=== PATIENT | female | born 1945 | race Caucasian/White ===

== ENCOUNTER 2018-05-24 07:25 | Emergency (ER) | payer MEDICARE, MEDICAID ==
[~2018-05-24] VITALS: Ht 172.7 cm; Wt 90.9 kg
[2018-05-24] MEDS ORDERED: acetaminophen 325mg tablet PO STA (08:04)
[2018-05-24] MEDS ORDERED: gentamicin 0.1% topical ointment 15gm TP SCH (08:05)
[2018-05-24] MEDS ORDERED: normal saline 1000ML IV soln IV ONE (08:05)
[2018-05-24] MEDS ORDERED: nystatin 15 GM powder TP SCH (08:05)
[2018-05-24] MEDS ORDERED: nystatin 15 GM powder TP ONE (08:05)
[2018-05-24] MEDS ORDERED: gentamicin 0.1% topical ointment 15gm TP ONE (08:05)
[2018-05-24] MEDS ORDERED: ibuprofen 200mg tablet PO ONE (08:05)
--- NOTE | 2018-05-24 08:25 | NUR ---
Patient was given Tylenol and was able to swallow x2 pills without difficulty. Patient then given ibuprofen at which she stated that she could take the x3 200 mg tablets, patient was given tablets and water. Patient began to cough and spit out water. Stated, "Just went down the wrong tube." Patient up at 90 degrees/ high fowlers. No respirator distress after administration. Patient oxygen staturation at 95%, no change since arrival in ED.
[2018-05-24 08:59] LABS: BASOPHILS # (AUTO) 0.1 X10'3 (0-0.2); BASOPHILS % (AUTO) 0.4 % (0-1); EOSINOPHILS % (AUTO) 0.1 % (0-6); HEMOGLOBIN 12.9 g/dl (12.0-16.0); LYMPHOCYTES # (AUTO) 0.8 X10'3 (1.1-4.8); LYMPHOCYTES % (AUTO) 3.8 % (21-51); MEAN CORPUSCULAR HEMOGLOBIN 29.9 PG (27.0-31.0); MEAN CORPUSCULAR HGB CONC 33.1 g/dL (33.0-36.5); MEAN CORPUSCULAR VOLUME 90.4 FL (78-98); MEAN PLATELET VOLUME 8.1 FL (7.4-10.4); MONOCYTES # (AUTO) 1.7 X10'3 (0-0.9); MONOCYTES % (AUTO) 8.1 % (2-12); NEUTROPHILS # (AUTO) 18.2 X10'3 (1.8-7.7); NEUTROPHILS % (AUTO) 87.6 % (42-75); PLATELET COUNT 233 X10'3 (140-440); RED BLOOD COUNT 4.32 X10'6 (4.20-5.60); RED CELL DISTRIBUTION WIDTH 13.3 % (11.5-14.5); WHITE BLOOD COUNT 20.7 X10'3 (4.5-11.0)
[2018-05-24 09:09] LABS: ALANINE AMINOTRANSFERASE 28 U/L (12-78); ALBUMIN 3.4 G/DL (3.4-5.0); ALBUMIN/GLOBULIN RATIO 0.8 (1.1-1.5); ALKALINE PHOSPHATASE 105 IU/L (46-116); ASPARTATE AMINO TRANSFERASE 24 U/L (10-37); BILIRUBIN,TOTAL 0.6 MG/DL (0.1-1.0); BLOOD UREA NITROGEN 20 MG/DL (7-18); BUN/CREATININE RATIO 20.8 (6.6-38.0); CHLORIDE 100 MMOL/L (99-107); CREATININE 0.96 MG/DL (0.40-0.90); GLUCOSE 107 MG/DL (70-104); TOTAL CARBON DIOXIDE 25.7 MMOL/L (24-32); TOTAL PROTEIN 7.6 G/DL (6.4-8.2); eGFR 57 ML/MIN
[2018-05-24 09:10] LABS: PROTHROMBIN TIME 9.7 SECONDS (9.0-12.0)
[2018-05-24 09:15] LABS: ANION GAP 8 (8-16); SODIUM 134 MMOL/L (135-145)
[2018-05-24 09:58] LABS: PLATELET ESTIMATE NORMAL; TOTAL CELLS COUNTED 100
[2018-05-24 10:10] LABS: CLARITY,URINE SLIGHTLY CLOUDY (Clear); COLOR,URINE YELLOW (Yellow); GLUCOSE, URINE NEGATIVE (Neg); KETONES,URINE NEGATIVE (Neg); LEUKOCYTE ESTERASE ,URINE NEGATIVE (Neg); NITRITES, URINE NEGATIVE (Neg); OCCULT BLOOD,URINE NEGATIVE (Neg); PH,URINE 5.5 (4.8-8.0); PROTEIN,URINE 30 mg/dl (Neg); UA COLLECTION TYPE STRAIGHT CATH; UROBILINOGEN,URINE 0.2 E.U/dL (0.2-1.0)
[2018-05-24 10:26] LABS: BACTERIA,URINE NONE SEEN /HPF (Neg); MUCUS STRANDS FEW /LPF (Neg); RBC,URINE NONE SEEN /HPF (0-2); SQUAMOUS EPITHELIAL CELL,UR FEW /LPF (FEW); TRANSITIONAL EPI CELLS,URINE FEW /HPF; WBC,URINE NONE SEEN /HPF (0-4)
[2018-05-24 10:27] LABS: AMORPHOUS URATES 1+; HYALINE CASTS 0-3 /LPF (NEGATIVE)
[2018-05-24] MEDS ORDERED: CEPH500C5 PO (10:44)
[2018-05-24] MEDS ORDERED: NYST1POW23 TOP (10:44)
[2018-05-24] MEDS ORDERED: CefTRIAXone/D5W-Rocephin 1gm 50 ML IV ONE (10:50)
[2018-05-24 11:34] VITALS: BP 135/88
== END 2018-05-24 11:36 | disposition home or self-care (01) ==
LOC: ER 07:27
DX: L03.311 Cellulitis of abdominal wall (principal); D72.829 Elevated white blood cell count, unspecified; B35.4 Tinea corporis; J44.9 Chronic obstructive pulmonary disease, unspecified; G89.29 Other chronic pain; M54.9 Dorsalgia, unspecified; F17.200 Nicotine dependence, unspecified, uncomplicated; Z88.1 Allergy status to other antibiotic agents; Z88.8 Allergy status to other drugs, medicaments and biological substances
CPT/HCPCS: 36415; 71046; 80053; 81001; 83605; 84145; 85025; 85610; 87040; 93005; 96365; 99284; J0696; J7030; P9612

== ENCOUNTER 2018-07-10 14:05 | Inpatient (IN) | payer MEDICARE, MEDICAID ==
[~2018-07-10] VITALS: Ht 172.7 cm; Wt 80.0 kg
[~2018-07-10 14:05] MED LIST: CEPH500C5 PO; NYST1POW23 TOP
--- NOTE | 2018-07-10 15:11 | NUR ---
Patient ambulated to room from lobby with steady gait and appropriate use of walker.
[2018-07-10] MEDS ORDERED: normal saline 1000ML IV soln IV ONE (15:25)
[2018-07-10] MEDS ORDERED: piperacillin/tazo 4.5gm/100ml 100 ML IV SCH (15:30)
[2018-07-10] MEDS ORDERED: piperacillin/tazo 4.5gm/100ml 100 ML IV ONE (15:33)
[2018-07-10] MEDS ORDERED: vancomycin/NS 1 GM ADD-VANTAGE 250 ML X 1 DOSE IV ONE (15:35)
[2018-07-10] MEDS ORDERED: morphine 4 MG/ML inj SYRINge IV ONE (15:45)
[2018-07-10] MEDS ORDERED: ondansetron/PF 4mg/2ml inj IV ONE (15:45)
--- NOTE | 2018-07-10 16:16 | NUR ---
AFTER MULTIPLE IV ATTEMPTS BY 2 RNS. 18 G IV ESTABLISHED TO LEFT NECK. PATIENT TOLERATED WELL.
[2018-07-10 16:24] LABS: BASOPHILS % (AUTO) 0.2 % (0-1); EOSINOPHILS # (AUTO) 0.2 X10'3 (0-0.9); EOSINOPHILS % (AUTO) 1.1 % (0-6); HEMATOCRIT 35.7 % (35.0-45.0); HEMOGLOBIN 11.7 g/dl (12.0-16.0); LYMPHOCYTES # (AUTO) 1.6 X10'3 (1.1-4.8); LYMPHOCYTES % (AUTO) 8.5 % (21-51); MEAN CORPUSCULAR HEMOGLOBIN 29.3 PG (27.0-31.0); MEAN CORPUSCULAR HGB CONC 32.8 g/dL (33.0-36.5); MEAN CORPUSCULAR VOLUME 89.3 FL (78-98); MEAN PLATELET VOLUME 8.2 FL (7.4-10.4); MONOCYTES # (AUTO) 2.4 X10'3 (0-0.9); MONOCYTES % (AUTO) 12.5 % (2-12); NEUTROPHILS # (AUTO) 14.7 X10'3 (1.8-7.7); NEUTROPHILS % (AUTO) 77.7 % (42-75); PLATELET COUNT 295 X10'3 (140-440); RED CELL DISTRIBUTION WIDTH 14.1 % (11.5-14.5)
[2018-07-10 16:33] LABS: INR 0.9 INR; PARTIAL THROMBOPLASTIN TIME 28 SECONDS (22-32)
[2018-07-10 16:43] LABS: ALANINE AMINOTRANSFERASE 17 U/L (12-78); ALBUMIN 2.4 G/DL (3.4-5.0); ALBUMIN/GLOBULIN RATIO 0.5 (1.1-1.5); ALKALINE PHOSPHATASE 198 IU/L (46-116); ANION GAP 10 (8-16); ASPARTATE AMINO TRANSFERASE 14 U/L (10-37); BILIRUBIN,TOTAL 0.4 MG/DL (0.1-1.0); BLOOD UREA NITROGEN 27 MG/DL (7-18); BUN/CREATININE RATIO 22.1 (6.6-38.0); CALCIUM 9.3 MG/DL (8.5-10.1); CHLORIDE 103 MMOL/L (99-107); CREATININE 1.22 MG/DL (0.40-0.90); GLUCOSE 98 MG/DL (70-104); MAGNESIUM 1.8 MG/DL (1.5-2.4); POTASSIUM 3.9 MMOL/L (3.5-5.1); SODIUM 138 MMOL/L (135-145); TOTAL CARBON DIOXIDE 24.7 MMOL/L (24-32); TOTAL PROTEIN 7.6 G/DL (6.4-8.2); eGFR 43 ML/MIN
--- NOTE | 2018-07-10 17:03 | NUR ---
Patient's left neck IV infiltrated. Antibiotic and NS stopped. Patient denies any pain. swelling noted. RN Mikey attempting another IV with use of ultra sound. Patient ambulated to bedside comode, urine sample collected and sent to lab.
--- NOTE | 2018-07-10 17:15 | NUR ---
warm compresses placed to left neck as pharmacy recommended for infiltration.
[2018-07-10 17:22] LABS: PLATELET ESTIMATE NORMAL; TOTAL CELLS COUNTED 100
--- NOTE | 2018-07-10 17:30 | NUR ---
HERMILO ALVA ESTABLISHED 20G IV TO RIGHT F/A. PATIENT TOLERATED WELL.
[2018-07-10 17:36] LABS: CLARITY,URINE CLOUDY (Clear); COLOR,URINE YELLOW (Yellow); GLUCOSE, URINE NEGATIVE (Neg); KETONES,URINE TRACE mg/dl (Neg); LEUKOCYTE ESTERASE ,URINE NEGATIVE (Neg); NITRITES, URINE NEGATIVE (Neg); OCCULT BLOOD,URINE NEGATIVE (Neg); PROTEIN,URINE 100 mg/dl (Neg)
[2018-07-10 17:37] LABS: UA COLLECTION TYPE CLN CATCH MIDSTREAM
[2018-07-10] MEDS ORDERED: ACET-2119 PO (17:40)
[2018-07-10] MEDS ORDERED: IBUP-1984 PO (17:40)
[2018-07-10] MEDS ORDERED: magnesium Cl slow-release 64mg tablet PO PRN (17:55)
[2018-07-10] MEDS ORDERED: ondansetron/PF 4mg/2ml inj IV PRN (17:55)
[2018-07-10] MEDS ORDERED: magnesium hydroxide 30ml (MOM) UD suspension PO PRN (17:55)
[2018-07-10] MEDS ORDERED: mag hydrox/Alum hydrox/simeth 30ml oral suspension PO PRN (17:55)
[2018-07-10] MEDS ORDERED: potassium Cl 40MEQ/NS 500ml 500 ML IV PRN ×2 (17:55)
[2018-07-10] MEDS ORDERED: magnesium 2GM in 50ml NS 50 ML IV PRN (17:55)
[2018-07-10] MEDS ORDERED: potassium Cl 20 mEq SR tablet PO PRN ×2 (17:55)
[2018-07-10] MEDS ORDERED: magnesium 4gm in 100ml NS 100 ML IV PRN (17:55)
[2018-07-10] MEDS ORDERED: acetaminophen 325mg tablet PO PRN (17:55)
[2018-07-10 18:04] LABS: BACTERIA,URINE 1+ /HPF (Neg); COARSE GRANULAR CAST 0-3 /LPF (NEGATIVE); MUCUS STRANDS NONE SEEN /LPF (Neg); SQUAMOUS EPITHELIAL CELL,UR MANY /LPF (FEW)
[2018-07-10 18:05] LABS: AMORPHOUS URATES 1+; RBC,URINE 0-2 /HPF (0-2); WBC,URINE 0-4 /HPF (0-4)
[2018-07-10] MEDS: normal saline 1000ml 1,000 ML IV SCH (19:31)
[2018-07-10] MEDS: heparin, porcine 5000 units/ml vial SQ SCH (20:49)
--- NOTE | 2018-07-10 20:50 | NUR ---
PT DID RECEIVE HER DIETARY TRAY AND SHE DID EAT SOME OF IT.
[2018-07-10] MEDS: acetaminophen 325mg tablet PO PRN (21:51)
[2018-07-10] MEDS ORDERED: nicotine 14mg patch - 24hr TD ONE (22:10)
[2018-07-10] MEDS: HYDROcodone/acetaminophen 5mg/325mg tablet PO PRN (23:38)
[2018-07-10] MEDS: temazepam 15mg capsule PO PRN (23:39)
[2018-07-11] MEDS: piperacillin/tazo 3.375gm/50ml 50 ML IV SCH ×3 (00:44→18:27)
--- NOTE | 2018-07-11 00:51 | NUR ---
Pt asleep. She had told me earlier not to awaken her if she did. So the zosyn was not scanned r/t her request and her left arm was under the covers. I quietly hung the zosyn and started it, without her waking up.
--- NOTE | 2018-07-11 02:08 | NUR ---
Pt up to Bedside commode, also gave her snacks and juice.
--- NOTE | 2018-07-11 02:20 | NUR ---
she is laying down and going to sleep again.
[2018-07-11] MEDS: normal saline 1000ml 1,000 ML IV SCH ×2 (04:43→09:53)
--- NOTE | 2018-07-11 06:01 | NUR ---
Pt requested coffee, gave her some. She wants a pain pill, but pyxis doing an update. Pt infomed.
[2018-07-11] MEDS: HYDROcodone/acetaminophen 5mg/325mg tablet PO PRN ×3 (06:56→16:47)
[2018-07-11] MEDS: K and/or MAG REPLACEMENT MC SCH (08:00)
[2018-07-11 08:22] VITALS: BP 181/88
[2018-07-11 08:54] LABS: BASOPHILS # (AUTO) 0.1 X10'3 (0-0.2); BASOPHILS % (AUTO) 0.5 % (0-1); EOSINOPHILS # (AUTO) 0.2 X10'3 (0-0.9); EOSINOPHILS % (AUTO) 1.1 % (0-6); HEMOGLOBIN 10.4 g/dl (12.0-16.0); LYMPHOCYTES # (AUTO) 1.2 X10'3 (1.1-4.8); LYMPHOCYTES % (AUTO) 6.9 % (21-51); MEAN CORPUSCULAR HGB CONC 32.5 g/dL (33.0-36.5); MEAN CORPUSCULAR VOLUME 89.5 FL (78-98); MEAN PLATELET VOLUME 7.7 FL (7.4-10.4); MONOCYTES # (AUTO) 1.8 X10'3 (0-0.9); NEUTROPHILS # (AUTO) 14.5 X10'3 (1.8-7.7); NEUTROPHILS % (AUTO) 81.5 % (42-75); PLATELET COUNT 270 X10'3 (140-440); RED BLOOD COUNT 3.57 X10'6 (4.20-5.60); RED CELL DISTRIBUTION WIDTH 14.1 % (11.5-14.5); WHITE BLOOD COUNT 17.7 X10'3 (4.5-11.0)
--- NOTE | 2018-07-11 09:00 | NUR ---
Patient in room [facility]. I have received report from RAVEN rn and had the opportunity to ask questions and assume patient care.
[2018-07-11 09:07] LABS: ALANINE AMINOTRANSFERASE 16 U/L (12-78); ALBUMIN 1.9 G/DL (3.4-5.0); ALBUMIN/GLOBULIN RATIO 0.4 (1.1-1.5); ALKALINE PHOSPHATASE 245 IU/L (46-116); ANION GAP 6 (8-16); ASPARTATE AMINO TRANSFERASE 14 U/L (10-37); BILIRUBIN,TOTAL 0.5 MG/DL (0.1-1.0); BLOOD UREA NITROGEN 18 MG/DL (7-18); BUN/CREATININE RATIO 18.8 (6.6-38.0); CALCIUM 8.2 MG/DL (8.5-10.1); CHLORIDE 107 MMOL/L (99-107); CREATININE 0.96 MG/DL (0.40-0.90); GLUCOSE 128 MG/DL (70-104); MAGNESIUM 1.5 MG/DL (1.5-2.4); PHOSPHORUS 2.3 MG/DL (2.3-4.5); SODIUM 136 MMOL/L (135-145); TOTAL CARBON DIOXIDE 22.8 MMOL/L (24-32); TOTAL PROTEIN 6.4 G/DL (6.4-8.2); eGFR 57 ML/MIN
[2018-07-11] MEDS: heparin, porcine 5000 units/ml vial SQ SCH ×2 (09:44→19:45)
--- NOTE | 2018-07-11 10:00 | NUR ---
PATIENT SETTLING INTO ROOM nORCO 5MG GIVEN WITH EFFECT FOR PAIN IN LEFT LEG. SLEEPING AND RESTING MOST OF SHIFT. UP TO BEDSIDE COMMODE WITH ASSIST X1. REPORT GIVEN TO GABINO AKHTAR
[2018-07-11 10:39] LABS: TOTAL CELLS COUNTED 100
[2018-07-11 10:40] LABS: PLATELET ESTIMATE NORMAL
[2018-07-11 11:00] VITALS: BP 124/70
[2018-07-11] MEDS: vancomycin/NS 1 GM ADD-VANTAGE 250 ML IV SCH (16:41)
--- NOTE | 2018-07-11 18:44 | NUR ---
Patient in room [facility]. I have received report from HERMILO Polo and had the opportunity to ask questions and assume patient care.
[2018-07-11] MEDS: lactobacillus rhamnosus 10,000 MMU CELLS/CAPSULE PO SCH (19:44)
[2018-07-11 20:00] VITALS: BP 140/72
[2018-07-11] MEDS: temazepam 15mg capsule PO PRN (20:56)
[2018-07-12] VITALS: BP 131/60
[2018-07-12] MEDS: piperacillin/tazo 3.375gm/50ml 50 ML IV SCH ×4 (00:09→23:53)
[2018-07-12] MEDS: HYDROcodone/acetaminophen 5mg/325mg tablet PO PRN ×6 (00:09→23:53)
[2018-07-12] MEDS: vancomycin/NS 1 GM ADD-VANTAGE 250 ML IV SCH ×2 (04:26→15:58)
[2018-07-12 04:53] LABS: BASOPHILS # (AUTO) 0.2 X10'3 (0-0.2); BASOPHILS % (AUTO) 0.9 % (0-1); EOSINOPHILS # (AUTO) 0.3 X10'3 (0-0.9); EOSINOPHILS % (AUTO) 1.7 % (0-6); HEMATOCRIT 29.1 % (35.0-45.0); HEMOGLOBIN 9.7 g/dl (12.0-16.0); LYMPHOCYTES # (AUTO) 1.8 X10'3 (1.1-4.8); LYMPHOCYTES % (AUTO) 10.7 % (21-51); MEAN CORPUSCULAR HEMOGLOBIN 29.3 PG (27.0-31.0); MEAN CORPUSCULAR HGB CONC 33.4 g/dL (33.0-36.5); MEAN PLATELET VOLUME 7.7 FL (7.4-10.4); MONOCYTES # (AUTO) 1.5 X10'3 (0-0.9); NEUTROPHILS # (AUTO) 12.9 X10'3 (1.8-7.7); NEUTROPHILS % (AUTO) 77.7 % (42-75); PLATELET COUNT 276 X10'3 (140-440); RED BLOOD COUNT 3.31 X10'6 (4.20-5.60); RED CELL DISTRIBUTION WIDTH 14.1 % (11.5-14.5); WHITE BLOOD COUNT 16.6 X10'3 (4.5-11.0)
[2018-07-12 05:15] LABS: ALBUMIN 1.7 G/DL (3.4-5.0); ANION GAP 8 (8-16); BLOOD UREA NITROGEN 13 MG/DL (7-18); CALCIUM 8.6 MG/DL (8.5-10.1); CHLORIDE 106 MMOL/L (99-107); CREATININE 0.93 MG/DL (0.40-0.90); GLUCOSE 125 MG/DL (70-104); MAGNESIUM 1.5 MG/DL (1.5-2.4); PHOSPHORUS 2.4 MG/DL (2.3-4.5); POTASSIUM 3.7 MMOL/L (3.5-5.1); SODIUM 138 MMOL/L (135-145); TOTAL CARBON DIOXIDE 23.9 MMOL/L (24-32); eGFR 59 ML/MIN
--- NOTE | 2018-07-12 06:11 | NUR ---
Problems reprioritized. Patient report given, questions answered & plan of care reviewed with HERMILO Polo.
--- NOTE | 2018-07-12 06:42 | NUR ---
Patient in room [facility]. I have received report from pepper main and had the opportunity to ask questions and assume patient care.
[2018-07-12 08:00] VITALS: BP 141/90
[2018-07-12] MEDS: K and/or MAG REPLACEMENT MC SCH (08:00)
[2018-07-12] MEDS: lactobacillus rhamnosus 10,000 MMU CELLS/CAPSULE PO SCH ×2 (08:22→19:47)
[2018-07-12] MEDS: heparin, porcine 5000 units/ml vial SQ SCH ×2 (08:23→19:48)
--- NOTE | 2018-07-12 16:36 | NUR ---
patient seen by Dr Quezada. Order given to remove NG tube, stop ppn and ABX . Patient is to be encouraged to ambulate and have clear liquid diet. If can tolerate this then will be advanced diet as tolerated. Dietery consult called. patient is resting in bed has been up ambulating x1 will continue to monitor. Addendum: 07/12/18 at 1639 by Melani Wilcox RN wrong patient above note
--- NOTE | 2018-07-12 18:47 | NUR ---
patient very upset at times with having to be "constantly poked" Time spent with patient. patient refused to have second set of blood cultures taken. states she will wait till Karthikeyan comes on at 2000hrs. Wick placed for incontinence. patient up using BSCX2. reluctant however to work with PT or get out of bed as states leg is very painful. [place] administered for pain. Report given to Kamila Menendez RN
--- NOTE | 2018-07-12 18:53 | NUR ---
Patient in room [facility]. I have received report from HERMILO Polo and had the opportunity to ask questions and assume patient care. Addendum: 07/12/18 at 1853 by Hodan Moe RN Amended: Links added.
[2018-07-12 20:00] VITALS: BP 151/91
[2018-07-12] MEDS: temazepam 15mg capsule PO PRN (21:51)
[2018-07-12] MEDS: acetaminophen 325mg tablet PO PRN (21:52)
[2018-07-13 00:56] VITALS: BP 129/80
[2018-07-13] MEDS ORDERED: VANCOMYCIN LEVEL IV ONE (03:30)
[2018-07-13] MEDS: vancomycin/NS 1 GM ADD-VANTAGE 250 ML IV SCH (04:25)
[2018-07-13] MEDS: HYDROcodone/acetaminophen 5mg/325mg tablet PO PRN ×3 (04:27→12:37)
[2018-07-13 05:33] LABS: BASOPHILS # (AUTO) 0.1 X10'3 (0-0.2); BASOPHILS % (AUTO) 0.4 % (0-1); EOSINOPHILS # (AUTO) 0.4 X10'3 (0-0.9); EOSINOPHILS % (AUTO) 2.8 % (0-6); HEMATOCRIT 30.4 % (35.0-45.0); LYMPHOCYTES % (AUTO) 13.7 % (21-51); MEAN CORPUSCULAR HEMOGLOBIN 29.4 PG (27.0-31.0); MEAN CORPUSCULAR VOLUME 89.1 FL (78-98); MEAN PLATELET VOLUME 7.4 FL (7.4-10.4); MONOCYTES # (AUTO) 1.1 X10'3 (0-0.9); MONOCYTES % (AUTO) 7.8 % (2-12); NEUTROPHILS # (AUTO) 10.9 X10'3 (1.8-7.7); NEUTROPHILS % (AUTO) 75.3 % (42-75); PLATELET COUNT 313 X10'3 (140-440); RED BLOOD COUNT 3.41 X10'6 (4.20-5.60); RED CELL DISTRIBUTION WIDTH 13.9 % (11.5-14.5); WHITE BLOOD COUNT 14.5 X10'3 (4.5-11.0)
[2018-07-13 05:43] LABS: ALBUMIN 1.6 G/DL (3.4-5.0); ANION GAP 9 (8-16); BLOOD UREA NITROGEN 13 MG/DL (7-18); CALCIUM 8.7 MG/DL (8.5-10.1); CHLORIDE 107 MMOL/L (99-107); GLUCOSE 93 MG/DL (70-104); MAGNESIUM 1.6 MG/DL (1.5-2.4); PHOSPHORUS 3.1 MG/DL (2.3-4.5); POTASSIUM 3.9 MMOL/L (3.5-5.1); SODIUM 143 MMOL/L (135-145); TOTAL CARBON DIOXIDE 27.3 MMOL/L (24-32); VANCOMYCIN,TROUGH 13.8 UG/ML (6.0-14.0); eGFR 54 ML/MIN
--- NOTE | 2018-07-13 05:48 | NUR ---
patient a/o, has lt. leg cellulitis, taking norco for her pain, no noted open areas and needs attended Addendum: 07/13/18 at 0549 by Hodan Moe RN Amended: Links added.
--- NOTE | 2018-07-13 06:36 | NUR ---
Problems reprioritized. Patient report given, questions answered & plan of care reviewed with HERMILO Nicholas. Addendum: 07/13/18 at 0637 by Hodan Moe RN Amended: Links added.
[2018-07-13] MEDS: K and/or MAG REPLACEMENT MC SCH (06:39)
[2018-07-13 07:00] VITALS: BP 131/71
[2018-07-13] MEDS: lactobacillus rhamnosus 10,000 MMU CELLS/CAPSULE PO SCH ×2 (08:51→20:59)
[2018-07-13] MEDS: heparin, porcine 5000 units/ml vial SQ SCH ×2 (08:52→20:59)
[2018-07-13] MEDS: piperacillin/tazo 3.375gm/50ml 50 ML IV SCH ×2 (08:52→17:44)
[2018-07-13 11:00] VITALS: BP 129/76
[2018-07-13] MEDS ORDERED: vancomycin inj 1,250 MG in NS 250ml IV soln IV SCH (16:00)
--- NOTE | 2018-07-13 16:19 | NUR ---
Extended PIV inserted to right upper arm basilic vein x 1 attempt after 1 failed attempt to the right upper arm cephalic vein both using ultrasound. Filemon well. Addendum: 07/13/18 at 1620 by Tamara Saldaña RN Amended: Links added.
[2018-07-13] MEDS: HYDROcodone/acetaminophen 10/325mg tab PO PRN ×2 (17:00→21:01)
--- NOTE | 2018-07-13 18:21 | NUR ---
Problems reprioritized. Patient report given, questions answered & plan of care reviewed with maria del carmen parsons rn.
--- NOTE | 2018-07-13 18:33 | NUR ---
Patient in room [facility]. I have received report from HERMILO Nicholas and had the opportunity to ask questions and assume patient care. Addendum: 07/13/18 at 1833 by Hodan Moe RN Amended: Links added.
[2018-07-13 19:00] VITALS: BP 122/57
[2018-07-13] MEDS: temazepam 15mg capsule PO PRN (20:59)
[2018-07-13] MEDS: diphenhydrAMINE 25mg capsule PO PRN (23:50)
[2018-07-13] MEDS: acetaminophen 325mg tablet PO PRN (23:50)
[2018-07-14] VITALS: BP 112/52
[2018-07-14] MEDS: HYDROcodone/acetaminophen 10/325mg tab PO PRN ×5 (02:52→20:50)
[2018-07-14 04:45] LABS: BASOPHILS # (AUTO) 0.1 X10'3 (0-0.2); BASOPHILS % (AUTO) 0.5 % (0-1); EOSINOPHILS # (AUTO) 0.4 X10'3 (0-0.9); EOSINOPHILS % (AUTO) 2.9 % (0-6); HEMATOCRIT 27.7 % (35.0-45.0); HEMOGLOBIN 9.2 g/dl (12.0-16.0); LYMPHOCYTES # (AUTO) 2.2 X10'3 (1.1-4.8); LYMPHOCYTES % (AUTO) 14.2 % (21-51); MEAN CORPUSCULAR HEMOGLOBIN 29.3 PG (27.0-31.0); MEAN CORPUSCULAR HGB CONC 33.3 g/dL (33.0-36.5); MEAN CORPUSCULAR VOLUME 88.1 FL (78-98); MEAN PLATELET VOLUME 7.2 FL (7.4-10.4); MONOCYTES # (AUTO) 1.4 X10'3 (0-0.9); MONOCYTES % (AUTO) 9.4 % (2-12); NEUTROPHILS # (AUTO) 11.1 X10'3 (1.8-7.7); PLATELET COUNT 337 X10'3 (140-440); RED BLOOD COUNT 3.14 X10'6 (4.20-5.60); RED CELL DISTRIBUTION WIDTH 13.9 % (11.5-14.5); WHITE BLOOD COUNT 15.2 X10'3 (4.5-11.0)
[2018-07-14 05:11] LABS: ALBUMIN 1.6 G/DL (3.4-5.0); ANION GAP 3 (8-16); BLOOD UREA NITROGEN 15 MG/DL (7-18); BUN/CREATININE RATIO 15.8 (6.6-38.0); CALCIUM 8.2 MG/DL (8.5-10.1); CHLORIDE 106 MMOL/L (99-107); CREATININE 0.95 MG/DL (0.40-0.90); GLUCOSE 76 MG/DL (70-104); MAGNESIUM 1.6 MG/DL (1.5-2.4); PHOSPHORUS 3.4 MG/DL (2.3-4.5); POTASSIUM 3.9 MMOL/L (3.5-5.1); SODIUM 139 MMOL/L (135-145); TOTAL CARBON DIOXIDE 29.7 MMOL/L (24-32); eGFR 58 ML/MIN
[2018-07-14 05:27] LABS: PLATELET ESTIMATE NORMAL; TOTAL CELLS COUNTED 100; TOXIC GRANULATION 1+
--- NOTE | 2018-07-14 06:30 | NUR ---
Problems reprioritized. Patient report given, questions answered & plan of care reviewed with HERMILO Nicholas. Addendum: 07/14/18 at 0631 by Hodan Moe RN Amended: Links added.
[2018-07-14] MEDS: K and/or MAG REPLACEMENT MC SCH (06:46)
[2018-07-14 07:00] VITALS: BP 120/72
[2018-07-14] MEDS: lactobacillus rhamnosus 10,000 MMU CELLS/CAPSULE PO SCH ×2 (07:27→19:58)
[2018-07-14] MEDS: heparin, porcine 5000 units/ml vial SQ SCH ×2 (07:28→19:59)
[2018-07-14] MEDS ORDERED: cefpodoxime proxetil 100mg tablet PO SCH (08:30)
[2018-07-14] MEDS: CefTRIAXone 2gm/D5W 50ml 50 ML IV SCH (09:06)
[2018-07-14 12:00] VITALS: BP 131/65
--- NOTE | 2018-07-14 12:28 | NUR ---
Initial: Pt admit with LLE cellulitis with possible sepsis. Pt currently on a regular diet with documented PO intake 100% meeting nutrient needs. [facility] 07/10. Per physical assessment pt is agitated and resistive to care. Will continue to follow and make recommendations as appropriate. Recommendations: 1) Continue with regular diet 2) Monitor need for ONS or additional protein 3) Monitor need for additional bowel care 4) Wt per rx Addendum: 07/14/18 at [address] Amended: Links added.
--- NOTE | 2018-07-14 18:16 | NUR ---
Problems reprioritized. Patient report given, questions answered & plan of care reviewed with maria del carmen parsons rn.
--- NOTE | 2018-07-14 18:19 | NUR ---
Patient in room [facility]. I have received report from HERMILO Nicholas and had the opportunity to ask questions and assume patient care. Addendum: 07/14/18 at 1819 by Hodan Moe RN Amended: Links added.
[2018-07-14 20:00] VITALS: BP 144/75
[2018-07-14] MEDS: temazepam 15mg capsule PO PRN (23:46)
[2018-07-15 00:48] VITALS: BP 111/53
[2018-07-15] MEDS: HYDROcodone/acetaminophen 10/325mg tab PO PRN ×5 (01:27→19:51)
[2018-07-15] MEDS ORDERED: VANCOMYCIN LEVEL IV ONE (03:30)
[2018-07-15 05:14] LABS: BASOPHILS # (AUTO) 0.1 X10'3 (0-0.2); EOSINOPHILS # (AUTO) 0.4 X10'3 (0-0.9); EOSINOPHILS % (AUTO) 2.4 % (0-6)
[2018-07-15 05:16] LABS: BASOPHILS % (AUTO) 0.8 % (0-1); HEMATOCRIT 29.2 % (35.0-45.0); HEMOGLOBIN 9.8 g/dl (12.0-16.0); LYMPHOCYTES # (AUTO) 2.3 X10'3 (1.1-4.8); LYMPHOCYTES % (AUTO) 14.3 % (21-51); MEAN CORPUSCULAR HEMOGLOBIN 29.9 PG (27.0-31.0); MEAN CORPUSCULAR HGB CONC 33.7 g/dL (33.0-36.5); MEAN CORPUSCULAR VOLUME 88.9 FL (78-98); MEAN PLATELET VOLUME 8.5 FL (7.4-10.4); MONOCYTES # (AUTO) 1.6 X10'3 (0-0.9); MONOCYTES % (AUTO) 9.6 % (2-12); NEUTROPHILS # (AUTO) 11.7 X10'3 (1.8-7.7); NEUTROPHILS % (AUTO) 72.9 % (42-75); PLATELET COUNT 241 X10'3 (140-440); RED BLOOD COUNT 3.29 X10'6 (4.20-5.60); RED CELL DISTRIBUTION WIDTH 14.8 % (11.5-14.5); WHITE BLOOD COUNT 16.1 X10'3 (4.5-11.0)
--- NOTE | 2018-07-15 05:44 | NUR ---
pt complaining that her pain medications always given late, explained to her that her pain meds are not scheduled and she needs to call or ask for it if she needs it. pt still upset because she fell asleep last night and did not get her pain med after 4 hours because she was asleep Addendum: 07/15/18 at 0546 by Hodan Moe RN Amended: Links added.
[2018-07-15 05:50] LABS: TOTAL CELLS COUNTED 100
[2018-07-15 05:51] LABS: PLATELET ESTIMATE NORMAL
--- NOTE | 2018-07-15 06:34 | NUR ---
Problems reprioritized. Patient report given, questions answered & plan of care reviewed with HERMILO Pereira. Addendum: 07/15/18 at 0634 by Hodan Moe RN Amended: Links added.
[2018-07-15 07:06] VITALS: BP 115/60
[2018-07-15 07:30] LABS: ALBUMIN 1.7 G/DL (3.4-5.0); ANION GAP 5 (8-16); BLOOD UREA NITROGEN 15 MG/DL (7-18); BUN/CREATININE RATIO 16.1 (6.6-38.0); CALCIUM 8.9 MG/DL (8.5-10.1); CHLORIDE 103 MMOL/L (99-107); CREATININE 0.93 MG/DL (0.40-0.90); GLUCOSE 100 MG/DL (70-104); MAGNESIUM 1.7 MG/DL (1.5-2.4); PHOSPHORUS 3.2 MG/DL (2.3-4.5); POTASSIUM 4.2 MMOL/L (3.5-5.1); SODIUM 137 MMOL/L (135-145); TOTAL CARBON DIOXIDE 28.7 MMOL/L (24-32); eGFR 59 ML/MIN
[2018-07-15] MEDS: K and/or MAG REPLACEMENT MC SCH (07:51)
[2018-07-15] MEDS: CefTRIAXone 2gm/D5W 50ml 50 ML IV SCH (07:53)
[2018-07-15] MEDS: lactobacillus rhamnosus 10,000 MMU CELLS/CAPSULE PO SCH ×2 (07:58→19:50)
[2018-07-15] MEDS: heparin, porcine 5000 units/ml vial SQ SCH ×2 (07:59→19:51)
[2018-07-15 11:00] VITALS: BP 123/69
[2018-07-15] MEDS: diphenhydrAMINE 25mg capsule PO PRN ×2 (14:56→23:11)
[2018-07-15 18:00] VITALS: BP 151/74
--- NOTE | 2018-07-15 18:00 | NUR ---
Problems reprioritized. Patient report given, questions answered & plan of care reviewed with ENRIQUE AKHTAR. PT SLEEPING COMFORTABLY, EVEN RISE AND FALL OF CHEST
--- NOTE | 2018-07-15 18:30 | NUR ---
Patient in room [facility]. I have received report from Moraima AKHTAR and had the opportunity to ask questions and assume patient care.
[2018-07-15] MEDS: temazepam 15mg capsule PO PRN (21:50)
[2018-07-15] MEDS: ibuprofen tablet 400 MG TABLET PO PRN (21:54)
[2018-07-16] VITALS: BP 122/63
[2018-07-16] MEDS: HYDROcodone/acetaminophen 10/325mg tab PO PRN ×5 (03:51→22:09)
[2018-07-16 04:56] LABS: ALBUMIN 1.6 G/DL (3.4-5.0); ANION GAP 5 (8-16); BLOOD UREA NITROGEN 19 MG/DL (7-18); BUN/CREATININE RATIO 19.8 (6.6-38.0); CHLORIDE 104 MMOL/L (99-107); CREATININE 0.96 MG/DL (0.40-0.90); GLUCOSE 116 MG/DL (70-104); MAGNESIUM 1.8 MG/DL (1.5-2.4); POTASSIUM 4.2 MMOL/L (3.5-5.1); SODIUM 138 MMOL/L (135-145); TOTAL CARBON DIOXIDE 29.4 MMOL/L (24-32); eGFR 57 ML/MIN
--- NOTE | 2018-07-16 06:44 | NUR ---
Problems reprioritized. Patient report given, questions answered & plan of care reviewed with Evangelina AKHTAR.
--- NOTE | 2018-07-16 06:54 | NUR ---
Patient in room [facility]. I have received report from HERMILO Galarza and had the opportunity to ask questions and assume patient care.
[2018-07-16 07:38] VITALS: BP 129/70
[2018-07-16] MEDS: K and/or MAG REPLACEMENT MC SCH (08:00)
[2018-07-16] MEDS: lactobacillus rhamnosus 10,000 MMU CELLS/CAPSULE PO SCH ×2 (08:08→20:27)
[2018-07-16] MEDS: CefTRIAXone 2gm/D5W 50ml 50 ML IV SCH (08:09)
[2018-07-16] MEDS: heparin, porcine 5000 units/ml vial SQ SCH ×2 (08:09→20:27)
--- NOTE | 2018-07-16 08:26 | NUR ---
No BM since SKIP MINER BLASTING. Pt states "I refuse to take a laxative. You guys take as long as you do to get down here, and I'm not shitting the bed". Will notify MD and continue to monitor.
[2018-07-16 12:00] VITALS: BP 132/85
[2018-07-16] MEDS: diphenhydrAMINE 25mg capsule PO PRN (15:12)
--- NOTE | 2018-07-16 15:14 | NUR ---
Pt agreeable to taking prune juice. 1 cup of prune juice provided and consumed by pt. Will continue to monitor.
--- NOTE | 2018-07-16 18:05 | NUR ---
Problems reprioritized. Patient report given, questions answered & plan of care reviewed with HERMILO Sidhu.
--- NOTE | 2018-07-16 19:09 | NUR ---
Patient in room [facility]. I have received report from HERMILO Hutchinson and had the opportunity to ask questions and assume patient care. Addendum: 07/16/18 at 1915 by Thea Garzon RN Amended: Links added.
[2018-07-16 19:27] VITALS: BP 121/63
[2018-07-16] MEDS: temazepam 15mg capsule PO PRN (22:08)
[2018-07-16 23:21] VITALS: BP 98/58
[2018-07-17] MEDS: HYDROcodone/acetaminophen 10/325mg tab PO PRN ×5 (06:00→23:35)
--- NOTE | 2018-07-17 06:22 | NUR ---
Problems reprioritized. Patient report given, questions answered & plan of care reviewed with HERMILO De La Cruz. Addendum: 07/17/18 at 0623 by Thea Garzon RN Amended: Links added.
[2018-07-17 08:00] VITALS: BP 133/78
[2018-07-17] MEDS: K and/or MAG REPLACEMENT MC SCH (08:00)
[2018-07-17] MEDS: lactobacillus rhamnosus 10,000 MMU CELLS/CAPSULE PO SCH ×2 (08:59→19:47)
[2018-07-17] MEDS: CefTRIAXone 2gm/D5W 50ml 50 ML IV SCH (08:59)
[2018-07-17] MEDS: ibuprofen tablet 400 MG TABLET PO PRN (08:59)
[2018-07-17] MEDS: heparin, porcine 5000 units/ml vial SQ SCH ×2 (09:00→19:47)
[2018-07-17 12:00] VITALS: BP 97/52
[2018-07-17 20:00] VITALS: BP 103/64
[2018-07-17] MEDS: temazepam 15mg capsule PO PRN (23:35)
[2018-07-18 00:24] VITALS: BP 131/56
[2018-07-18] MEDS: HYDROcodone/acetaminophen 5mg/325mg tablet PO PRN ×2 (04:17→08:21)
--- NOTE | 2018-07-18 06:19 | NUR ---
Problems reprioritized. Patient report given, questions answered & plan of care reviewed with HERMILO Herrera. Addendum: 07/18/18 at 0619 by Thea Garzon RN Amended: Links added.
--- NOTE | 2018-07-18 06:20 | NUR ---
Patient in room [facility]. I have received report from HERMILO Sidhu and had the opportunity to ask questions and assume patient care.
[2018-07-18 07:19] VITALS: BP 100/62
[2018-07-18] MEDS: K and/or MAG REPLACEMENT MC SCH (08:00)
[2018-07-18] MEDS: lactobacillus rhamnosus 10,000 MMU CELLS/CAPSULE PO SCH ×2 (08:21→19:40)
[2018-07-18] MEDS: heparin, porcine 5000 units/ml vial SQ SCH ×2 (08:21→19:40)
[2018-07-18] MEDS: CefTRIAXone 2gm/D5W 50ml 50 ML IV SCH (08:25)
--- NOTE | 2018-07-18 11:10 | NUR ---
Reassessment: Pt continues with abx tx for cellulitis. Per MD notes pt blood cultures positive for Staph Epi. Pt remains on regular diet with documented PO intake 75-100% still meeting nutrient needs. [facility] 07/17. Will continue to follow. Recommendations: 1) Continue with regular diet 2) Monitor need for ONS or additional protein 3) Monitor need for additional bowel care 4) Wt per rx Addendum: 07/18/18 at [address] Amended: Links added.
[2018-07-18 11:23] VITALS: BP 100/59
[2018-07-18] MEDS: HYDROcodone/acetaminophen 10/325mg tab PO PRN ×3 (12:22→20:51)
[2018-07-18] MEDS: diphenhydrAMINE 25mg capsule PO PRN (13:27)
--- NOTE | 2018-07-18 18:18 | NUR ---
Problems reprioritized. Patient report given, questions answered & plan of care reviewed with Kamila Arenas RN.
[2018-07-18 20:00] VITALS: BP 107/50
[2018-07-18] MEDS ORDERED: linezolid 600mg/300ml PREMIX 300 ML IV ONE (21:45)
[2018-07-18] MEDS: temazepam 15mg capsule PO PRN (22:10)
[2018-07-18] MEDS ORDERED: nystatin 15 GM powder TP ONE (22:25)
[2018-07-18] MEDS ORDERED: benzocaine/menthol oral lozeng 1 EACH BOX MM PRN (22:25)
[2018-07-18 23:43] VITALS: BP 117/52
[2018-07-19] MEDS: HYDROcodone/acetaminophen 10/325mg tab PO PRN ×4 (01:02→13:01)
--- NOTE | 2018-07-19 06:35 | NUR ---
Problems reprioritized. Patient report given, questions answered & plan of care reviewed with HERMILO Green.
[2018-07-19] MEDS: K and/or MAG REPLACEMENT MC SCH (06:49)
[2018-07-19 07:00] VITALS: BP 103/55
[2018-07-19] MEDS: lactobacillus rhamnosus 10,000 MMU CELLS/CAPSULE PO SCH (07:56)
[2018-07-19] MEDS: heparin, porcine 5000 units/ml vial SQ SCH (07:56)
[2018-07-19] MEDS: nystatin 15 GM powder TP SCH ×2 (07:56→13:00)
[2018-07-19] MEDS ORDERED: linezolid 600mg/300ml PREMIX 300 ML IV SCH (08:00)
[2018-07-19] MEDS: CefTRIAXone 2gm/D5W 50ml 50 ML IV SCH (08:00)
[2018-07-19] MEDS ORDERED: magnesium Cl slow-release 64mg tablet PO PRN (09:10)
[2018-07-19] MEDS ORDERED: magnesium 4gm in 100ml NS 100 ML IV PRN (09:10)
[2018-07-19] MEDS ORDERED: potassium Cl 20 mEq SR tablet PO PRN ×2 (09:10)
[2018-07-19] MEDS ORDERED: potassium Cl 40MEQ/NS 500ml 500 ML IV PRN ×2 (09:10)
[2018-07-19 09:43] LABS: BASOPHILS # (AUTO) 0.1 X10'3 (0-0.2); BASOPHILS % (AUTO) 0.5 % (0-1); EOSINOPHILS # (AUTO) 0.4 X10'3 (0-0.9); EOSINOPHILS % (AUTO) 3.3 % (0-6); HEMATOCRIT 29.7 % (35.0-45.0); HEMOGLOBIN 9.9 g/dl (12.0-16.0); LYMPHOCYTES # (AUTO) 1.7 X10'3 (1.1-4.8); LYMPHOCYTES % (AUTO) 15.6 % (21-51); MEAN CORPUSCULAR HEMOGLOBIN 29.3 PG (27.0-31.0); MEAN CORPUSCULAR HGB CONC 33.5 g/dL (33.0-36.5); MEAN CORPUSCULAR VOLUME 87.6 FL (78-98); MEAN PLATELET VOLUME 6.9 FL (7.4-10.4); MONOCYTES # (AUTO) 1.7 X10'3 (0-0.9); MONOCYTES % (AUTO) 15.6 % (2-12); PLATELET COUNT 402 X10'3 (140-440); RED BLOOD COUNT 3.39 X10'6 (4.20-5.60); RED CELL DISTRIBUTION WIDTH 14.2 % (11.5-14.5); WHITE BLOOD COUNT 10.8 X10'3 (4.5-11.0)
[2018-07-19 09:57] LABS: ALANINE AMINOTRANSFERASE 11 U/L (12-78); ALBUMIN 1.9 G/DL (3.4-5.0); ALBUMIN/GLOBULIN RATIO 0.4 (1.1-1.5); ALKALINE PHOSPHATASE 243 IU/L (46-116); ANION GAP 4 (8-16); ASPARTATE AMINO TRANSFERASE 12 U/L (10-37); BILIRUBIN,TOTAL 0.2 MG/DL (0.1-1.0); BLOOD UREA NITROGEN 20 MG/DL (7-18); CALCIUM 8.8 MG/DL (8.5-10.1); CHLORIDE 99 MMOL/L (99-107); CREATININE 1.05 MG/DL (0.40-0.90); GLUCOSE 170 MG/DL (70-104); MAGNESIUM 1.9 MG/DL (1.5-2.4); POTASSIUM 4.4 MMOL/L (3.5-5.1); SODIUM 134 MMOL/L (135-145); TOTAL CARBON DIOXIDE 30.6 MMOL/L (24-32); TOTAL PROTEIN 6.9 G/DL (6.4-8.2); eGFR 51 ML/MIN
[2018-07-19] MEDS ORDERED: LACT1CAP26 PO (10:30)
[2018-07-19] MEDS ORDERED: LINE600T36 PO (10:30)
[2018-07-19 10:31] LABS: PLATELET ESTIMATE NORMAL; TOTAL CELLS COUNTED 100
[2018-07-19] MEDS ORDERED: HYDR-4383 PO (15:12)
--- NOTE | 2018-07-19 15:50 | NUR ---
PT DISCHARGED IN STABLE CONDITION. PT WAS WAITING FOR CAB RIDE, I WANTED TO LEAVE PT AT LAW REPORTER IN LOBBY TO WAIT, SHE INSISTED THAT SHE WAIT OUTSIDE. I SUGGESTED SHE JUST WAIT INSIDE BECAUSE IT WAS WARM OUTSIDE. SHE STATED THAT SHE WAS SICK OF US MICROMANAGING HER, AND SHE INSISTED THAT SHE WAIT OUTSIDE. LEFT PT ON BENCH IN FRONT OF HOSPITAL TO WAIT FOR CAB.
--- NOTE | 2018-07-19 15:56 | NUR ---
EXTENDED IV DC, CANULA INTACT. ALL BELONGINGS IN HAND INCLUDING RX FOR NORCO DELIVERED BY [facility] BEDSIDE. FOLLOW UP INSTRUCTIONS GIVEN, ALL QUESTIONS ANSWERED.
== END 2018-07-19 15:34 | disposition home or self-care (01) | DRG 872 ==
LOC: ER 14:06 → SUR 3N 07-11 09:24 → CMPBEDREQ 07-11 19:59
PROVIDERS: ADMIT Family Medicine; ATTEND Family Medicine
DX: A41.9 Sepsis, unspecified organism (principal); L03.116 Cellulitis of left lower limb; E44.0 Moderate protein-calorie malnutrition; J44.9 Chronic obstructive pulmonary disease, unspecified; F41.1 Generalized anxiety disorder; G89.29 Other chronic pain; M54.9 Dorsalgia, unspecified; B95.5 Unspecified streptococcus as the cause of diseases classified elsewhere; E66.01 Morbid (severe) obesity due to excess calories; Z66 Do not resuscitate; Z59.0 Homelessness; Z72.0 Tobacco use; Z90.5 Acquired absence of kidney; Z88.1 Allergy status to other antibiotic agents; Z68.26 Body mass index [BMI] 26.0-26.9, adult
CPT/HCPCS: 36415; 71045; 80048; 80053; 80202; 81001; 83605; 83735; 84100; 84145; 85025; 85610; 85730; 87040; 87070; 87077; 87186; 93005; 93306; 93971; 96365; 96367; 96375; 97110; 97116; 97161; 97530; 99285; G0378; J0696; J1644; J2020; J2270; J2405; J2543; J3370; J7030; Q0163

== ENCOUNTER 2018-11-30 09:26 | Inpatient (IN) | payer MEDICARE, MEDICAID ==
[~2018-11-30] VITALS: Ht 172.7 cm; Wt 92.2 kg
[~2018-11-30 09:26] MED LIST changes: -CEPH500C5 PO; +HYDR-4383 PO; +IBUP-1984 PO; +LACT1CAP26 PO; -NYST1POW23 TOP
[2018-11-30] MEDS ORDERED: hydrOXYzine 25 MG tablet PO PRN (10:25)
[2018-11-30] MEDS ORDERED: loperamide 2mg capsule PO PRN (10:25)
[2018-11-30] MEDS ORDERED: LORazepam 1 MG tablet PO PRN (10:25)
[2018-11-30] MEDS ORDERED: acetaminophen 325mg tablet PO PRN ×2 (10:25→13:25)
[2018-11-30] MEDS ORDERED: mag hydrox/Alum hydrox/simeth 30ml oral suspension PO PRN (10:25)
[2018-11-30] MEDS ORDERED: ALBU8HFA PO (13:11)
[2018-11-30] MEDS ORDERED: ACET-2389 PO (13:11)
--- NOTE | 2018-11-30 13:27 | NUR ---
Admission note: Pt admitted at 1220 from [facility] on 5150 for DTS. Pt has a plan to break a bottle to cut her wrists or overdose on pills. [facility]. PT feels depressed, hopeless, helpless and suicidal. Pt unable to formulate a safety plan at this time. Pt has history of arthritis,, smoker, depression. Pt states her social security recently stopped and has been trying to fix it. She reports prior suicide attempts. Pt states "Im at the end of anything. Month after month, day after day. Im tired of thinking about new ways to kill myself everyday. I have nowhere to go and nothing to do and cant live any longer."
--- NOTE | 2018-11-30 13:55 | NUR ---
Pt admitted from [facility] on a 5150 for DTS at 1220. Pt has been homeless and staying at the [place]. Pt came in stating, "I don't know why you guys just don't euthanize me. Why are you wasting so much money on a disabled, old person like me." Pt is hopeless and helpless. She is very expressive about this. "What's the point?" 2 Person skin check complete and all belongings logged in. Pt showered with staff assistance and clothes were washed. Pt oriented to the unit.
--- NOTE | 2018-11-30 17:03 | NUR ---
Nursing Progress Note: Legal hold: Client on 5150 for DTS Why are they here: Pt is here because she has no will to live. She has been at the [place] and got kicked out for 30 days and now she wants to . Assessment What has happened this shift: After admission, pt ate lunch and attended afternoon group, then returned to her room and slept. S/I, H/I: Yes, S.I. A/VH: denies Sleep: nap ADL's: encourage, minimal assistance Group attendance: yes Were meds taken: n/a Any med S/E Mental Status Exam Appearance: Disheveled Eye contact:good Behavior:cooperative, negative Speech: clear Mood: depressed, apathetic Affect:expressive Thought process: intact Thought Content: perseverating on her life not worth living Cognition:intact Insight:poor Judgment:poor Interventions PRN's used: n/a Therapeutic interventions: positive reinforcement, milieu push, 1:1 Restraints/seclusion/emergency medication: n/a Justification of Continued Inpatient Treatment: pt remains DTS
[2018-11-30 19:52] VITALS: BP 165/88
[2018-11-30] MEDS: ibuprofen tablet 400 MG TABLET PO PRN (20:53)
--- NOTE | 2018-12-01 01:57 | NUR ---
Nursing Progress Note: Legal hold: Client on 5150 for DTS Why are they here: Pt is here because she has no will to live. She has been at the [place] and got kicked out for 30 days and now she wants to . Assessment What has happened this shift: Patient laying in bed at the beginning of shift. Patient was moved into a new bedroom and appears to be adjusting well. She is considerate of roommate and initiates conversation. Patient states she is feeling better but endorses depression. She denies SI, HI, AH, and VH. Patient expressed her sadness for being an elderly homeless woman that is not , and no children or grandchildren. Patient explains personal timeline out of order, jumping from present to past. She consistently emphasizes ETOH abuse did not help her situation. Patient explained a situation where a previous county "dumped" her and later explained how her and a friend got onto a bus because he knew family they could stay with. Patient also endorsed previous amphetamine use in which she went on a tangent that some may make it out ok but it "eats up" most people and continued to explain an invisible realm you can only see when using. Patient remained in her room most of the shift, reading a book. Pleasant and cooperative with assessment and able to make needs known. S/I, H/I: denies A/VH: denies Sleep: asleep at this time ADL's: encourage, minimal assistance Group attendance: no groups this shift Were meds taken: none scheduled but PRN taken Any med S/E: none observed, none reported. Mental Status Exam Appearance: Disheveled Eye contact: good Behavior: cooperative Speech: clear Mood: depressed, apathetic Affect:expressive Thought process: tangential, delusional Thought Content: perseverating on being homeless with no spouse, children, or grandchildren Cognition:intact Insight:poor Judgment:poor Interventions PRN's used: Motrin effective Therapeutic interventions: positive reinforcement, milieu push, 1:1 Restraints/seclusion/emergency medication: n/a Justification of Continued Inpatient Treatment: pt remains DTS
[2018-12-01] MEDS: ibuprofen tablet 400 MG TABLET PO PRN (05:42)
[2018-12-01 08:05] VITALS: BP 158/88
[2018-12-01 08:29] LABS: CHOL/HDL RATIO 2.8 (0.00-4.99); CHOLESTEROL 189 MG/DL (0-200); HDL CHOLESTEROL 67 MG/DL (35-60); LDL CHOLESTEROL 74 MG/DL (50-100); TRIGLYCERIDES 124 MG/DL (20-135)
[2018-12-01 08:30] LABS: HEMOGLOBIN A1C 5.5 % (4.5-6.2)
--- NOTE | 2018-12-01 10:45 | NUR ---
[facility]: SMITHA made TC to [facility] Erica (Director) [phone], who reports pt cannot return to [facility] because she refused to follow medication guidelines. [facility] reports he will look into the storage of pt items and return contact to SW once he knows if items are still in storage. Hodan Mcpherson, Heavy Repairer [facility] [id number] Supervised by Jak Shelley, [id number] Addendum: 12/01/18 at 2027 by Hodan Mcpherson SS Addition: SMITHA met w/ guest specialist staff who provided SW w/ pt's stored items. SMIHTA placed items in pt storage area w/ name tag attached to bag.
[2018-12-01] MEDS: NICOTINE POLACRILEX 2 MG LOZENGE MM PRN (13:02)
--- NOTE | 2018-12-01 16:47 | NUR ---
Critical lab: Lab called. Pt has MRSA in nasal swab. Pt instructed on hand washing
[2018-12-01] MEDS: acetaminophen 325mg tablet PO PRN (17:02)
--- NOTE | 2018-12-01 17:31 | NUR ---
Nursing Progress Note: Legal hold: Client on 5150 for DTS Why are they here: Pt is here because she has no will to live. She has been at the [place] and got kicked out for 30 days and now she wants to . Assessment What has happened this shift: Patient sleeping most of the day. Up for all meals. C/O aching pain all over, especially arms. Takes Tylenol for pain.. Patient perseverates on negatives. Educated client on MRSA and need for good hand washing. Pt. Upset that she cannot use baby wipes or alcohol on hands, and soap cracks her skin. S/I, H/I: What, are you going to kick me out if I say no. Patient was informed that she has no housing and she will not be kicked out. A/VH: denies Sleep: 7.5 hrs. NOC, napped during daytime. ADL's: encourage, minimal assistance Group attendance: yes Were meds taken: n/a Any med S/E Mental Status Exam Appearance: Disheveled Eye contact: good Behavior: cooperative, negative Speech: clear, loud. Mood: depressed, apathetic Affect: expressive Thought process: Linear. Poverty of thought. Thought Content: Wanting general assistance paperwork filled out. Cognition: intact Insight: poor Judgment: poor Interventions PRN's used: n/a Therapeutic interventions: 1:1, therapeutic conversation, clear and simple instructions, positive reinforcement, q15 safety checks. Restraints/seclusion/emergency medication: n/a Justification of Continued Inpatient Treatment: Pt. Is gravely disabled and cannot provide food, clothing and longterm. Patient is in need of crisis stabilization.
[2018-12-01 20:00] VITALS: BP 137/77
[2018-12-01] MEDS ORDERED: amLODIPine 5mg tablet PO ONE (20:05)
[2018-12-01] MEDS: hydrOXYzine 25 MG tablet PO PRN (21:43)
--- NOTE | 2018-12-01 22:58 | NUR ---
Nursing Progress Note: Legal hold: Client on 5150 for DTS Why are they here: Pt is here because she has no will to live. She has been at the [place] and got kicked out for 30 days and now she wants to . Assessment What has happened this shift: Patient isolated to her room the entirety of the shift. She sat up in bed reading. Pt states she is not feeling suicidal right now but she is very upset that her MRSA culture came back positive. She states, "now where will take me? no where will want someone MRSA positive." Tire Molder educates pt on what MRSA is and hand washing regimen. PT calms down after this and states that she will make sure that if she gets any cuts or scratches that she will be sure to wash them with soap and water and keep them clean. Pt refuses her HS amlodipine because "I have never taken that and I need to speak with a doctor face to face before I do please." Pt requests hydroxyzine 25mg PRN, which was given to her. S/I, H/I: "not right now" A/VH: denies Sleep: see sleep assessment notation . ADL's: encourage, minimal assistance Group attendance: save all operator, no group Were meds taken: n/a Any med S/E: none reported, none observed Mental Status Exam Appearance: Disheveled Eye contact: good Behavior: cooperative, negative Speech: clear, loud. Mood: depressed, apathetic Affect: expressive Thought process: Linear. Poverty of thought. Thought Content: preoccupied about MRSA Cognition: intact Insight: poor Judgment: poor Interventions PRN's used: hydroxyzine Therapeutic interventions: 1:1, therapeutic conversation, clear and simple instructions, positive reinforcement, q15 safety checks. Restraints/seclusion/emergency medication: n/a Justification of Continued Inpatient Treatment: Pt. Is gravely disabled and cannot provide food, clothing and penitentiary. Patient is in need of crisis stabilization.
[2018-12-02] MEDS: acetaminophen 325mg tablet PO PRN ×3 (01:13→21:15)
[2018-12-02 07:00] VITALS: BP 174/92
[2018-12-02] MEDS: amLODIPine 5mg tablet PO SCH ×2 (07:43→08:00)
--- NOTE | 2018-12-02 07:44 | NUR ---
Refused med: Pts BP 174/92 . Encouraged pt to take her new order of Norvasc. Pt refusing stating "I dont want to go to sleep. I need to stay awake for the sr. social media & mobile manager." After multiple attempts, pt continues to refuse it.
[2018-12-02 08:22] LABS: BASOPHILS % (AUTO) 0.7 % (0-1); EOSINOPHILS # (AUTO) 0.2 X10'3 (0-0.9); EOSINOPHILS % (AUTO) 3.5 % (0-6); HEMATOCRIT 41.2 % (35.0-45.0); HEMOGLOBIN 13.8 g/dl (12.0-16.0); LYMPHOCYTES # (AUTO) 2.3 X10'3 (1.1-4.8); LYMPHOCYTES % (AUTO) 33.1 % (21-51); MEAN CORPUSCULAR HEMOGLOBIN 29.4 PG (27.0-31.0); MEAN CORPUSCULAR HGB CONC 33.6 g/dL (33.0-36.5); MEAN CORPUSCULAR VOLUME 87.7 FL (78-98); MEAN PLATELET VOLUME 8.4 FL (7.4-10.4); MONOCYTES # (AUTO) 0.9 X10'3 (0-0.9); MONOCYTES % (AUTO) 12.7 % (2-12); NEUTROPHILS # (AUTO) 3.5 X10'3 (1.8-7.7); PLATELET COUNT 239 X10'3 (140-440); RED CELL DISTRIBUTION WIDTH 14.2 % (11.5-14.5)
[2018-12-02 08:59] LABS: ALBUMIN 3.5 G/DL (3.4-5.0); ANION GAP 8 (8-16); BLOOD UREA NITROGEN 23 MG/DL (7-18); BUN/CREATININE RATIO 22.5 (6.6-38.0); CALCIUM 9.2 MG/DL (8.5-10.1); CHLORIDE 107 MMOL/L (99-107); CREATININE 1.02 MG/DL (0.40-0.90); GLUCOSE 80 MG/DL (70-104); POTASSIUM 4.9 MMOL/L (3.5-5.1); SODIUM 142 MMOL/L (135-145); TOTAL CARBON DIOXIDE 27.5 MMOL/L (24-32); eGFR 53 ML/MIN
[2018-12-02] MEDS: NICOTINE POLACRILEX 2 MG LOZENGE MM PRN ×2 (09:45→16:09)
[2018-12-02] MEDS: docusate sod 100mg capsule PO SCH ×2 (14:21→16:09)
--- NOTE | 2018-12-02 15:47 | NUR ---
Nursing Progress Note: Legal hold: Client on 5150 for DTS Why are they here: Pt is here because she has no will to live. She has been at the [place] and got kicked out for 30 days and now she wants to . What happened this shift?: Patient awakened for breakfast and medications. Pt. initially refused BP medication and insisted on seeing the social problems specialist before she would take her med. Knocked on SW door and no one was there, informed her that I couldn't find SW yet. She agreed to take Amlodipine. Pt. napped in afternoon. Assessment S/I, H/I: Denies. A/VH: denies Sleep: Slept well NOC, napped during daytime. ADL's: encourage, minimal assistance Group attendance: yes Were meds taken: Yes Any med S/E Mental Status Exam Appearance: Disheveled Eye contact: good Behavior: cooperative, negative Speech: clear, loud. Mood: depressed, apathetic Affect: expressive Thought process: Linear. Poverty of thought. Thought Content: Wanting general assistance paperwork filled out. Cognition: intact Insight: poor Judgment: poor Interventions PRN's used: Tylenol Therapeutic interventions: 1:1, therapeutic conversation, clear and simple instructions, positive reinforcement, q15 safety checks. Restraints/seclusion/emergency medication: n/a Justification of Continued Inpatient Treatment: Pt. Is gravely disabled and cannot provide food, clothing and half-way. Patient is in need of crisis stabilization.
[2018-12-02 20:00] VITALS: BP 147/76
[2018-12-02] MEDS: hydrOXYzine 25 MG tablet PO PRN (21:14)
--- NOTE | 2018-12-03 00:49 | NUR ---
Nursing Progress Note: Legal hold: Client on 5150 for DTS Why are they here: Pt is here because she has no will to live. She has been at the [place] and got kicked out for 30 days and now she wants to . Assessment What has happened this shift: Patient isolated to her room at the beginning of the shift. She requests L depends which were given to her. She reports she has only been given XL depends which is causing leakage and she has to change her pants often. After she changed into the L size she reports it is much more comfortable. She goes into the group room for snack and stays in the room to eat and watch TV. Pt is talkative and tells stories to chief writer. She is cooperative with 1:1 assessment. Pt requests hydroxyzine 25mg PRN and tylenol for arthritis pain, which was given to her. S/I, H/I: "not right now" A/VH: denies Sleep: see sleep assessment notation . ADL's: encourage, minimal assistance Group attendance: shift superintendent, no group Were meds taken: yes Any med S/E: none reported, none observed Mental Status Exam Appearance: Disheveled Eye contact: good Behavior: cooperative, negative Speech: clear, loud. Mood: fair Affect: bland Thought process: Linear Thought Content: WNL Cognition: intact Insight: poor Judgment: poor Interventions PRN's used: hydroxyzine Therapeutic interventions: 1:1, therapeutic conversation, clear and simple instructions, positive reinforcement, q15 safety checks. Restraints/seclusion/emergency medication: n/a Justification of Continued Inpatient Treatment: Pt. Is gravely disabled and cannot provide food, clothing and snf. Patient is in need of crisis stabilization.
[2018-12-03] MEDS: docusate sod 100mg capsule PO SCH ×2 (07:33→20:00)
[2018-12-03] MEDS: acetaminophen 325mg tablet PO PRN ×2 (07:34→15:48)
[2018-12-03] MEDS: amLODIPine 5mg tablet PO SCH (07:34)
[2018-12-03 08:00] VITALS: BP 135/79
--- NOTE | 2018-12-03 13:19 | NUR ---
Nursing Progress Note: Legal hold: N/A, pt is now on voluntary status SBAR from Angie Jeffries RN Why are they here: Pt is here because she has no will to live. She has been at the [facility] and got kicked out for 30 days and now she wants to . Assessment What has happened this shift: Pt states she is depressed about her life and if she had a way to end it, she would. Pt states that there is no point in going on. Pt contracts for safety here, states she won't try anything here, "that'd be stupid." Pt believes she has had a BM since 11/28/18 (the last one documented in [facility]) but can't remember when. Pt became irritable when offered MOM, stated that she is fine, she doesn't go everyday, states that she is not uncomfortable or in any pain, states that she will get up and exercise later and that should help. Pt c/o feeling sleepy after breakfast, stated she thinks it's from the blood pressure med, amlodipine then states or maybe it's because she ate too much. Pt sleeps with stuffed animal (dog) under her arm. Pt has 3+ pitting edema left lower leg from knee down. Pt states it has been this way since she had cellulitis 3 months ago, hospitalist aware, no redness noted, not warm to touch. S/I, H/I: Pt denies HI, + SI; no plan. A/VH: Pt denies Sleep: Slept 7 hours per noc shift report, napped after breakfast. ADL's: encourage, minimal assistance Group attendance: No Were meds taken: yes Any med S/E: reported feeling tired from amlodipine Mental Status Exam Appearance: Disheveled Eye contact: Good Behavior: Cooperative, stays in room for most of shift, out for meals Speech: Clear, audible Mood: Depressed, irritable Affect: congruent Thought process: Linear Thought Content: thinks BP med makes her sleepy, does not wish to be pestered about constipation Cognition: A/O X 4 Insight: poor Judgment: poor Interventions PRN's used: Tylenol 975 mg at 0734 for bilateral shoulder pain Therapeutic interventions: 1:1 assessment, therapeutic conversation, medication administration/education/monitoring, encouragement to perform personal hygiene, encouragement to attend groups, Q 15 min safety checks. Restraints/seclusion/emergency medication: N/A Justification of Continued Inpatient Treatment: Pt is gravely disabled and cannot provide food, clothing and intermediate. Patient is in need of crisis stabilization and medication adjustment.
[2018-12-03 19:32] VITALS: BP 147/69
[2018-12-03] MEDS: magnesium hydroxide 30ml (MOM) UD suspension PO PRN (21:27)
--- NOTE | 2018-12-04 00:42 | NUR ---
Nursing Progress Note: Legal hold: N/A, pt is now on voluntary status SBAR from Jourdan AKHTAR Why are they here: Pt is here because she has no will to live. She has been at the [facility] and got kicked out for 30 days and now she wants to . Assessment What has happened this shift: PT is visible on the unit, sitting in the community room. She eats snack with her peers. She expresses that she has been feeling like her short term memory is getting worse. "I don't remember the conversation I had just 2 to 3 hours ago." "My shelter memory is still there, I know physically I am getting older but mentally I don't want to accept that." Pt is very concerned about medications and worried that they could effect her memory. Pt states she is still constipated and requests MOM which was given to her. Pt has 3+ pitting edema left lower leg from knee down. Pt states it has been this way since she had cellulitis 3 months ago, hospitalist aware, no redness noted, not warm to touch. S/I, H/I: Pt denies A/VH: Pt denies Sleep: See sleep assessment notations ADL's: encourage, minimal assistance Group attendance: television receiver analyzer no group Were meds taken: MOM, denied colace Any med S/E: reported feeling tired from amlodipine Mental Status Exam Appearance: Disheveled Eye contact: Good Behavior: Cooperative, visible on unit Speech: Clear, audible Mood: Depressed, worried Affect:depressed Thought process: Linear Thought Content: thinks BP med makes her sleepy, memory issues Cognition: A/O X 4 Insight: poor Judgment: poor Interventions PRN's used: MOM Therapeutic interventions: 1:1 assessment, therapeutic conversation, medication administration/education/monitoring, encouragement to perform personal hygiene, encouragement to attend groups, Q 15 min safety checks. Restraints/seclusion/emergency medication: N/A Justification of Continued Inpatient Treatment: Pt is gravely disabled and cannot provide food, clothing and halfway. Patient is in need of crisis stabilization and medication adjustment.
[2018-12-04] MEDS: acetaminophen 325mg tablet PO PRN ×2 (02:44→21:05)
[2018-12-04] MEDS: hydrOXYzine 25 MG tablet PO PRN (05:08)
[2018-12-04] MEDS: docusate sod 100mg capsule PO SCH ×2 (07:57→20:00)
[2018-12-04 08:01] VITALS: BP 153/79
--- NOTE | 2018-12-04 12:26 | NUR ---
Nursing Progress Note: Legal hold: N/A, pt is now on voluntary status SBAR from Angie Jeffries RN Why are they here: Pt is here because she has no will to live. She has been at the [facility] and got kicked out for 30 days and now she wants to . Assessment What has happened this shift: Patient was asleep at change of shift and up in the Community Room before breakfast. Patient found reading a book in the community room when RN did the 1:1. Patient had refused her Colace this morning because she had MOM last night and was afraid of a "blowout". Patient upset that her Disability was cut off in September. Patient states she has no friends or family she can live with. Patient was thrown out of the [facility] for 30 days. Patient states she has lived in [place] for 2 years. When HERMILO Escobar asked her about depression and Suicidal ideation. Patient states "yes I'm depressed and I have been suicidal for 40 years. I have attempted to kill myself twice and I might try it again." Patient then goes back to being upset at [employer] for cancelling her disability. Pt said that SS told her that she needs to go to [facility] and see their doctor to have her disability reinstated. Patient states her disability is not due to a physical ailment. Then patient moves on to another subject and states her constipation is due to the medication she has received here and she is going to refuse her medication tonight. The doctor should know that "he is causing my constipation due to the medication her prescribes." RN asked patient about the edema to her left lower leg. Patient states she has had edema to her left lower leg for a long time. S/I, H/I: Pt denies HI, + SI; no plan. A/VH: Pt denies Sleep: Short nap during the day ADL's: encourage, minimal assistance Group attendance: No Were meds taken: yes Any med S/E: "constipation" Mental Status Exam Appearance: Disheveled Eye contact: Good Behavior: Cooperative but agitated Speech: Clear, audible Mood: Depressed, irritable Affect: somewhat labile Thought process: Linear Thought Content: Perseverating on losing her Disability Cognition: A/O X 4 Insight: poor Judgment: poor Interventions PRN's used: None Therapeutic interventions: 1:1 assessment, therapeutic conversation, medication administration/education/monitoring, encouragement to perform personal hygiene, encouragement to attend groups, Q 15 min safety checks. Restraints/seclusion/emergency medication: N/A Justification of Continued Inpatient Treatment: Pt is gravely disabled and cannot provide food, clothing and custodial. Patient is in need of crisis stabilization and medication adjustment.
[2018-12-04 20:41] VITALS: BP 130/81
[2018-12-04] MEDS: amLODIPine 5mg tablet PO SCH (20:58)
--- NOTE | 2018-12-04 22:57 | NUR ---
Nursing Progress Note: Legal hold: N/A, pt is now on voluntary status SBAR from Jourdan AKHTAR Why are they here: Pt is here because she has no will to live. She has been at the [facility] and got kicked out for 30 days and now she wants to . Assessment What has happened this shift: PT is visible on the unit, sitting in the community room. She also is observed reading a book in her room. She is upset that her disability has been stopped and says that tomorrow she might be able to talk to someone about it. She says her disability never should have been stopped. She reports her shoulders are still in pain and she utilizes the PRN tylenol. She also takes her HS amlodipine but refuses her colace. Pt's LLE is still +3, but pt reports it is "feeling much better, I am able to move it more than I was before, it's not as tight." S/I, H/I: Pt denies A/VH: Pt denies Sleep: See sleep assessment notations ADL's: encourage, minimal assistance Group attendance: fast food shift lead no group Were meds taken: denied colace Any med S/E:none reported or observed this shift. Mental Status Exam Appearance: Disheveled Eye contact: Good Behavior: Cooperative, visible on unit Speech: Clear, audible Mood: Depressed, worried Affect:depressed Thought process: Linear Thought Content: thinks BP med makes her sleepy, memory issues Cognition: A/O X 4 Insight: poor Judgment: poor Interventions PRN's used: MOM Therapeutic interventions: 1:1 assessment, therapeutic conversation, medication administration/education/monitoring, encouragement to perform personal hygiene, encouragement to attend groups, Q 15 min safety checks. Restraints/seclusion/emergency medication: N/A Justification of Continued Inpatient Treatment: Pt is gravely disabled and cannot provide food, clothing and assisted. Patient is in need of crisis stabilization and medication adjustment.
[2018-12-05] MEDS: docusate sod 100mg capsule PO SCH ×2 (07:31→21:16)
[2018-12-05] MEDS: acetaminophen 325mg tablet PO PRN ×2 (07:41→21:13)
[2018-12-05 07:45] VITALS: BP 146/72
[2018-12-05] MEDS ORDERED: tuberculin, purif. prot. deriv. 5 units/0.1ml ID ONE (08:15)
--- NOTE | 2018-12-05 09:40 | NUR ---
Good appetite, eating well, 75-100% average PO Intake of regular meals. Documented with constipation, no BM for one week. Patient is refusing colace for four days, did take milk of magnesia on 12/03. Bowel care will continue to be offered by nursing. Recommend: 1. continue regular diet 2. continue bowel care 3. Weight per rx Addendum: 12/05/18 at [address] Amended: Links added.
--- NOTE | 2018-12-05 14:56 | NUR ---
REFERRAL COORDINATION: SW met w/ pt and discussed housing and advocate resources. Pt agreeable to [facility] referral, [facility] and [facility]. Pt completed FELECIA for communication w/ [facility] Ict Help Desk Officer, [facility] and [facility]. Hodan Mcpherson, Side Seam Machine Operator HEAVY EQUIPMENT OPERATOR/PAVER [id number] Supervised by Jak Shelley, [id number]
--- NOTE | 2018-12-05 15:22 | NUR ---
Nursing Progress Note: Legal hold: N/A, pt is now on voluntary status SBAR from Angie Jeffries RN Why are they here: Pt is here because she has no will to live. She has been at the [facility] and got kicked out for 30 days and now she wants to . Assessment What has happened this shift: Patient was up at change of shift and up and walking in the hallways. Patient found reading a book in her room when RN did the 1:1. Patient had refused her Colace this morning again because she had a large BM yesterday afternoon. Patient upset that her Disability was cut off in September. Patient c/o having a diuretic effect from her medication. Patient wants to speak to the Doctor about this. Patient is still depressed and feels hopeless and helpless. Patient feels like she wants to . Patient is elderly, uses a walker with no place to live. In the afternoon Grzegorz was in the room with patient talking to her about taking an anti-depressant. Patient finally agreed. RN gave patient a PPD test for placement. S/I, H/I: Pt denies HI, + SI; no plan. A/VH: Pt denies Sleep: Short naps during the day ADL's: encourage, minimal assistance Group attendance: No Were meds taken: yes Any med S/E: None observed Mental Status Exam Appearance: Disheveled Eye contact: Good Behavior: Cooperative Speech: Clear, audible Mood: Depressed Affect: Depressed Thought process: Linear Thought Content: Patient has no future. Cognition: A/O X 4 Insight: poor Judgment: poor Interventions PRN's used: Tylenol Therapeutic interventions: 1:1 assessment, therapeutic conversation, medication administration/education/monitoring, encouragement to perform personal hygiene, encouragement to attend groups, Q 15 min safety checks. Restraints/seclusion/emergency medication: N/A Justification of Continued Inpatient Treatment: Pt is gravely disabled and cannot provide food, clothing and assisted. Patient is in need of crisis stabilization and medication adjustment.
[2018-12-05 20:06] VITALS: BP 142/80
[2018-12-05] MEDS: amLODIPine 5mg tablet PO SCH (21:13)
--- NOTE | 2018-12-05 23:58 | NUR ---
Nursing Progress Note: Legal hold: N/A, pt is now on voluntary status SBAR from Jourdan AKHTAR Why are they here: Pt is here because she has no will to live. She has been at the [facility] and got kicked out for 30 days and now she wants to . Assessment What has happened this shift: PT is observed reading a book quietly in her room at shift change. She is polite and cooperative with 1:1 assessment. Pt is feeling anxious regarding her discharge because of placement. she is worried she will not be able to find a place that will fit her needs. She explains that she was upset on day shift because she was upset with a social worker masters. She also explains that she needs to apply for [place] assistance before leaving but discovered she needs her certificate, which she does not have. Pt said she is still feeling suicidal but she thinks it is from stress of not having a place to live or any money. S/I, H/I: Passive SI A/VH: Pt denies Sleep: See sleep assessment notations ADL's: encourage, minimal assistance Group attendance: shift mechanic no group Were meds taken: yes Any med S/E:none reported or observed this shift. Mental Status Exam Appearance: Disheveled Eye contact: Good Behavior: Cooperative, visible on unit Speech: Clear, audible Mood: Depressed, worried Affect:depressed Thought process: Linear Thought Content: worried about disharge and money Cognition: A/O X 4 Insight: poor Judgment: poor Interventions PRN's used: Tylenol Therapeutic interventions: 1:1 assessment, therapeutic conversation, medication administration/education/monitoring, encouragement to perform personal hygiene, encouragement to attend groups, Q 15 min safety checks. Restraints/seclusion/emergency medication: N/A Justification of Continued Inpatient Treatment: Pt is gravely disabled and cannot provide food, clothing and detention. Patient is in need of crisis stabilization and medication adjustment.
[2018-12-06 07:54] VITALS: BP 145/80
[2018-12-06] MEDS: docusate sod 100mg capsule PO SCH ×2 (08:05→21:17)
[2018-12-06] MEDS: acetaminophen 325mg tablet PO PRN ×2 (08:07→21:20)
--- NOTE | 2018-12-06 08:59 | NUR ---
EMERGENCY MAN CONTACT: SW received return contact from Monicaparag Martel at [phone], regarding pt SSI being discontinued. Monica reports pt is placed on "N20 Status" for failing to return completed form that is required. She instructed pt to complete [id number] Appointment form to allow her to assist pt in regaining her entitlements. SW will fax form to [phone]. Hodan Mcpherson, Soft Crab Shedder [facility] [id number] Supervised by Jak Shelley, [id number] Addendum: 12/06/18 at 1425 by Hodan Mcpherson SS Addition: Pt was interviewed by [facility] Fans Clerk, Harjeet, who states he is not ready to accept pt until she is able to be more flexible and agreeable to following structure of the program. He reports he will return to interview her on 12/11/2018. End Note.
--- NOTE | 2018-12-06 17:44 | NUR ---
Nursing Progress Note: Legal hold: N/A, pt is now on voluntary status SBAR from Magalie AKHTAR Why are they here: Pt is here because she has no will to live. She has been at the [place] and got kicked out for 30 days and now she wants to . Assessment What has happened this shift: Received patient up at change of and in group room. She appears ornery but is very pleasant and concerned about her pain management issues. Received Tylenol PRN in AM and took AM colace as well. Patient found reading a book in her room when RN did the 1:1. Continues to be upset that her Disability was cut off in September. Patient c/o having a diuretic effect from her medication. Patient wants to speak to the Doctor about this. Patient is still depressed and feels hopeless and helpless. Patient is elderly, uses a walker with no place to live.Interacts well with others and spent time in group room watching TV. S/I, H/I: Pt denies HI, + SI; no plan. A/VH: Pt denies Sleep: Short naps during the day ADL's: encourage, minimal assistance Group attendance: No Were meds taken: yes Any med S/E: None observed Mental Status Exam Appearance: Disheveled Eye contact: Good Behavior: Cooperative Speech: Clear, audible Mood: Depressed Affect: Depressed Thought process: Linear Thought Content: Patient has no future. Cognition: A/O X 4 Insight: poor Judgment: poor Interventions PRN's used: Tylenol Therapeutic interventions: 1:1 assessment, therapeutic conversation, medication administration/education/monitoring, encouragement to perform personal hygiene, encouragement to attend groups, Q 15 min safety checks. Restraints/seclusion/emergency medication: N/A Justification of Continued Inpatient Treatment: Pt is gravely disabled and cannot provide food, clothing and penitentiary. Patient is in need of crisis stabilization and medication adjustment.
[2018-12-06 20:00] VITALS: BP 137/76
[2018-12-06 21:15] VITALS: BP 110/70
[2018-12-06] MEDS: amLODIPine 5mg tablet PO SCH (21:17)
[2018-12-06] MEDS: albuterol 2.5 MG/3 ML nebule NEB PRN (21:23)
[2018-12-07] MEDS ORDERED: ibuprofen 200mg tablet PO ONE (00:30)
--- NOTE | 2018-12-07 00:51 | NUR ---
Nursing Note: Pt. awoke at approximately midnight reporting insomnia r/t chronic bilateral shoulder pain. Obtained order for one-time dose of 600mg of Motrin and heat packs placed at area, will continue to monitor. Shahbaz BENNETT also gave order to obtain a UA on pt., education provided to pt. and she reports understanding.
--- NOTE | 2018-12-07 01:50 | NUR ---
Nursing Progress Note: Legal hold: Voluntary Client on voluntary DTS Report received from nurse with use of SBAR: HERMILO Hobbs Why are they here: Pt admitted from [facility] on 5150 for DTS. Pt has a plan to break a bottle to cut her wrists or overdose on pills. [facility]. She reports feeling depressed, hopeless, and helpless. Pt unable to formulate a safety plan at this time. She reports prior suicide attempts. Assessment What has happened this shift: Pt. up sitting in the Group Room at the beginning of the shift, when greeted by this comic writer pt. states, "I had a bad day, I have negative energy, I pissed off the doctor, social science analyst, and [facility] interviewer." This comic writer provided active listening and positive encouragement, and pt. continued to speak with a linear thought process, but in an accelerated and loud voice. Pt. continues to present as mildly irritable. and will interrupt others. She reports ongoing S/I, depression, and anxiety, states, "I just feel tired and hopeless. Pt. refuses to take an anxiolytic at this time because she fears it will negatively affect her other medications. She reports she continues to worry that she will not receive enough care if she is discharged to [facility]. Pt. has also been considering [facility], but she is concerned about the smoking policy and having to share a room. Pt. states, "I am just tired of worrying about residential, food, and having medical care." She also voices concern regarding re-establishing her Social Security funds. S/I, H/I: Passive S/I, does not report a plan A/VH: N/A Sleep: Pt. reports chronic insomnia. She awoke at approximately midnight reporting insomnia r/t chronic bilateral shoulder pain. Obtained order for one-time dose of 600mg of Motrin and heat packs placed at area, will continue to monitor. ADL's: Independent, uses FWW for ambulation Group attendance: Pt. reports she attends groups Were meds taken: Yes Any med S/E: None Mental Status Exam Appearance: Neat and appropriately dressed Eye contact: Good Behavior: Cooperative, fatigued, slightly irritable, and anxious Speech: WNL, although continues to be accelerated and loud, will interrupt others Mood: Slightly irritable Affect: Constricted Thought process: WNL Thought Content: Perseveration over feeling depressed, hopeless, and helpless. Cognition: A&O Insight: Fair Judgment: Fair Interventions PRN's used: Tylenol and one-time dose of 600mg of Motrin Therapeutic interventions: Ensured contract for safety, maintained a safe and supportive environment, encouraged independent performance of ADLs, monitored behavior and need for intervention, educated to pt. to let staff know if she continues to experience insomnia, and maintained Q 15 min safety checks. Restraints/seclusion/emergency medication: N/A Justification of Continued Inpatient Treatment: Pt. continues to require medication adjustments and a safe and supportive environment.
[2018-12-07 07:33] VITALS: BP 134/76
[2018-12-07] MEDS: docusate sod 100mg capsule PO SCH ×2 (08:00→21:57)
[2018-12-07] MEDS: acetaminophen 325mg tablet PO PRN (08:12)
--- NOTE | 2018-12-07 12:13 | NUR ---
[facility] Contact: SW made TC to [place] at [facility] ([phone]) and left message requesting a return contact. Hodan Mcpherson, Lead Software Test Engineer [facility] [id number] Supervised by Jak Shelley, [id number] Addendum: 12/07/18 at 1228 by Hodan Mcpherson SS Addition to note: Pt signed FELECIA for [facility] communication, collaboration and referral. End note.
--- NOTE | 2018-12-07 16:01 | NUR ---
Nursing Progress Note: Legal hold: N/A, pt is now on voluntary status SBAR from Magalie AKHTAR Why are they here: Pt is here because she has no will to live. She has been at the [place] and got kicked out for 30 days and now she wants to . Assessment What has happened this shift: Received patient up at change of and in group room. She continues to present as ornery but can be very pleasant and remains concerned about housing and pain issues. Received Tylenol PRN in AM but refused colace, stating she was afraid it would give her diarhea. She stated that if she does not have a bowel movement today, she will ask for MOM janet. Pt talks about not wanting to live and feels hopeless. Vague SI stated with negative attitude and view of life. Patient reads in her room, sits in hallway and group room as well.Patient c/o having a diuretic effect from her medication. Patient wants to speak to the Doctor about this. Patient is still depressed and feels hopeless and helpless. She continues to use a walker to ambulate and resists engaging in discharge planning and displays poor insight and judgement. S/I, H/I: Pt denies HI, + SI; no specific plan. A/VH: Pt denies Sleep: Short naps during the day ADL's: encourage, minimal assistance Group attendance: No Were meds taken: yes Any med S/E: None observed Mental Status Exam Appearance: Disheveled Eye contact: Good Behavior: Cooperative Speech: Clear, audible Mood: Depressed Affect: Depressed Thought process: Linear Thought Content: Patient has no future. Cognition: A/O X 4 Insight: poor Judgment: poor Interventions PRN's used: Tylenol Therapeutic interventions: 1:1 assessment, therapeutic conversation, medication administration/education/monitoring, encouragement to perform personal hygiene, encouragement to attend groups, Q 15 min safety checks. Restraints/seclusion/emergency medication: N/A Justification of Continued Inpatient Treatment: Pt is gravely disabled and cannot provide food, clothing and custodial. Patient is in need of crisis stabilization and medication adjustment.
[2018-12-07 19:42] VITALS: BP 110/77
[2018-12-07] MEDS: magnesium hydroxide 30ml (MOM) UD suspension PO PRN (20:46)
[2018-12-07] MEDS: FLUoxetine 20mg capsule PO SCH (21:57)
[2018-12-07] MEDS: amLODIPine 5mg tablet PO SCH (21:58)
--- NOTE | 2018-12-08 00:41 | NUR ---
Nursing Progress Note: Legal hold: Voluntary Client on voluntary DTS Report received from nurse with use of SBAR: HERMILO Rubio Why are they here: Pt admitted from [facility] on 5150 for DTS. Pt has a plan to break a bottle to cut her wrists or overdose on pills. [facility] day out. She reports feeling depressed, hopeless, and helpless. Pt unable to formulate a safety plan at this time. She reports prior suicide attempts. Assessment What has happened this shift: Patient awake in her bed at the beginning of shift. Patient remained in her bed most of the shift; during time awake she sat up in bed to read. MOM provided with no results at this time. Patient cooperative with all medications and assessment. Patient initiated conversation and brought up possibility of going to AA to seek help with alcoholism. Patient explained understanding of not having control of alcohol and not having the ability to not drink when it is present. Patient stated "I always drink what I buy. If I buy an 1/8th I drink an 1/8th, when I buy a pint I drink a pint." Patient explained she mainly drinks hard alcohol. Patient explained understanding of starting fluoxetine when identifying her HS pills. She began to joke about growing wings and prancing down the wright and went back to explain she was just joking and did not believe this to actually happen. She then expressed she had some anxiousness due to starting a new medication. S/I, H/I: denies A/VH: denies Sleep: asleep at this time ADL's: Independent, uses FWW for ambulation Group attendance: no groups this shift Were meds taken: Yes Any med S/E: None reported, none observed Mental Status Exam Appearance: appropriately dressed, strong odor Eye contact: Good Behavior: Cooperative Speech: hyperverbal, continues to be accelerated and loud, interrupts others Mood: animated Affect: anxious Thought process: WNL Thought Content: Perseveration over alcoholism. Cognition: A&O Insight: Fair Judgment: Fair Interventions PRN's used: none at this time Therapeutic interventions: Ensured contract for safety, maintained a safe and supportive environment, encouraged independent performance of ADLs, monitored behavior and need for intervention, educated to pt. to let staff know if she continues to experience insomnia, and maintained Q 15 min safety checks. Restraints/seclusion/emergency medication: N/A Justification of Continued Inpatient Treatment: Pt. continues to require medication adjustments and a safe and supportive environment.
[2018-12-08] MEDS: acetaminophen 325mg tablet PO PRN ×2 (02:46→22:45)
--- NOTE | 2018-12-08 02:46 | NUR ---
Patient complains of bilateral shoulder pain. Described as an ache. 8 on a scale of 0-10. Patient states this pain increases with any arm movement. "It's my arthritis." Tylenol given PO.
[2018-12-08] MEDS: docusate sod 100mg capsule PO SCH ×2 (07:31→20:00)
[2018-12-08 07:37] VITALS: BP 131/77
--- NOTE | 2018-12-08 15:35 | NUR ---
Nursing Progress Note: Ivania Gastelumross Legal hold: Voluntary Client on voluntary DTS Report received from nurse with use of SBAR: Angie MATHEW Why are they here: Pt admitted from [facility] on 5150 for DTS. Pt has a plan to break a bottle to cut her wrists or overdose on pills. [facility] but is [facility] a [facility] day out. She reports feeling depressed, hopeless, and helpless. Pt unable to formulate a safety plan at this time. She reports prior suicide attempts. Assessment What has happened this shift: Patient was in her room resting in bed to begin the shift today. Her respirations appeared even, unlabored and she was in no apparent signs of distress. Patient refused am Colace stating, " it has worked very well, believe me". Compliant with am assessment and went to Group Room for breakfast. Social with Staff as well as peer group. Client keeps asking for Motrin and refusing Tylenol for complaints of, "pain". Client visible on unit this afternoon. She remains loud and intrusive but redirectable. S/I, H/I: denies A/VH: denies Sleep: ADL's: Independent, uses FWW for ambulation Group attendance: no Were meds taken: Yes Any med S/E: None reported, none observed Mental Status Exam Appearance: appropriately dressed Eye contact: Good Behavior: Cooperative Speech: hyperverbal, continues to be accelerated and loud, intrusive Mood: animated Affect: anxious Thought process: WNL Thought Content: Perseveration over alcoholism. Cognition: A&O Insight: Fair Judgment: Fair Interventions: PRN's used: none at this time Therapeutic interventions: Ensured contract for safety, maintained a safe and supportive environment, encouraged independent performance of ADLs, monitored behavior and need for intervention, educated to pt. to let staff know if she continues to experience insomnia, and maintained Q 15 min safety checks. Restraints/seclusion/emergency medication: N/A Justification of Continued Inpatient Treatment: Pt. continues to require medication adjustments and a safe and supportive environment.
[2018-12-08 19:38] VITALS: BP 117/67
[2018-12-08] MEDS: amLODIPine 5mg tablet PO SCH (20:34)
[2018-12-08] MEDS: FLUoxetine 20mg capsule PO SCH (20:36)
[2018-12-08] MEDS: ibuprofen tablet 400 MG TABLET PO PRN (22:45)
--- NOTE | 2018-12-09 03:18 | NUR ---
Nursing Progress Note: Legal hold: Voluntary Client on voluntary DTS Report received from nurse with use of SBAR: PRIYANKA Ross Why are they here: Pt admitted from [facility] on 5150 for DTS. Pt has a plan to break a bottle to cut her wrists or overdose on pills. [facility] but is [facility] a [facility] day out. She reports feeling depressed, hopeless, and helpless. Pt unable to formulate a safety plan at this time. She reports prior suicide attempts. Assessment What has happened this shift: Patient in the group room watching TV at the beginning of shift. Patient refused HS Prozac and explained she is only willing to take in the AM because she doesn't like the way it makes her feel at night. Patient also refused Colace stating "you become dependent on that stuff if you take it for too long." Patient became agitated, raising her voice explaining her frustration on Prozac schedule and not having Motrin available. She was easily redirected when this gag writer explained Prozac scheduled to change 12/09 to AM and Motrin prescribed PRN. Patient provided Tylenol and Motrin for arthritis upon request. Shortly after HS snack patient went into her bedroom to read for a brief time before falling asleep. S/I, H/I: denies A/VH: denies Sleep: asleep at this time ADL's: Independent, uses FWW for ambulation Group attendance: no groups this shift Were meds taken: Refused Colace and Prozac. Any med S/E: None reported, none observed Mental Status Exam Appearance: appropriately dressed, disheveled Eye contact: Good Behavior: Cooperative Speech: hyperverbal, continues to be accelerated and loud, interrupts others Mood: agitated Affect: congruent to mood Thought process: linear Thought Content: Perseveration over alcoholism. Cognition: A&O Insight: Fair Judgment: Fair Interventions PRN's used: Motrin and Tylenol Therapeutic interventions: Ensured contract for safety, maintained a safe and supportive environment, encouraged independent performance of ADLs, monitored behavior and need for intervention, educated to pt. to let staff know if she continues to experience insomnia, and maintained Q 15 min safety checks. Restraints/seclusion/emergency medication: N/A Justification of Continued Inpatient Treatment: Pt. continues to require medication adjustments and a safe and supportive environment.
[2018-12-09 08:00] VITALS: BP 113/68
[2018-12-09] MEDS: docusate sod 100mg capsule PO SCH ×2 (08:00→20:31)
[2018-12-09] MEDS: FLUoxetine 20mg capsule PO SCH (08:14)
[2018-12-09] MEDS: ibuprofen tablet 400 MG TABLET PO PRN ×2 (08:15→17:03)
[2018-12-09] MEDS: acetaminophen 325mg tablet PO PRN ×2 (08:15→17:03)
--- NOTE | 2018-12-09 15:50 | NUR ---
Nursing Progress Note: Ivania Legal hold: Voluntary Client on voluntary DTS Report received from Nancy MATHEW with use of SBAR: Why are they here: Pt admitted from [facility] on 5150 for DTS. Pt has a plan to break a bottle to cut her wrists or overdose on pills. [facility] but is [facility] a [facility] day out. She reports feeling depressed, hopeless, and helpless. Pt unable to formulate a safety plan at this time. She reports prior suicide attempts. Assessment What has happened this shift: Patient was in hallway sitting on her personal walker at shift change. She jokingly states she is going to file a formal complaint with the [employer] because she believes breakfast should be served at 0700. Initially patient refused her AM prozac, however this advertising copy writer reminded her that she had made an agreement with the provider that she would take it in the morning. Through much grumbling, she took the medication and then stated "I dont know why I should do what I said, when he doesn't do what he promises" This was apparently referring to her Motrin order which I assured her was ordered. Remained in community room most of day working on word puzzles and talking with other clients on the unit. S/I, H/I: denies A/VH: denies Sleep: 5.25 ADL's: Independent, uses FWW for ambulation Group attendance: Were meds taken: Refused Colace. Any med S/E: None reported, none observed Mental Status Exam Appearance: appropriately dressed, disheveled Eye contact: Good Behavior: Cooperative Speech: loud, irritable Mood: agitated Affect: congruent to mood Thought process: linear Thought Content: Perseveration not taking meds, wanting regular pain medications Cognition: A&O Insight: Fair Judgment: Fair Interventions PRN's used: Motrin and Tylenol Therapeutic interventions: Ensured contract for safety, maintained a safe and supportive environment, encouraged independent performance of ADLs, monitored behavior and need for intervention, educated to pt. to let staff know if she continues to experience insomnia, and maintained Q 15 min safety checks. Restraints/seclusion/emergency medication: N/A Justification of Continued Inpatient Treatment: Pt. continues to require medication adjustments and a safe and supportive environment. Addendum: 12/09/18 at 1707 by Brittani Tena RN Patient reports when taking Prozac at night she was unable to sleep, when taking it in the morning she is too sleepy. Wants to try something different. States she spoke with her provider about it.
[2018-12-09 17:39] LABS: CLARITY,URINE CLEAR (Clear); COLOR,URINE YELLOW (Yellow); GLUCOSE, URINE NEGATIVE (Neg); KETONES,URINE NEGATIVE (Neg); LEUKOCYTE ESTERASE ,URINE NEGATIVE (Neg); NITRITES, URINE NEGATIVE (Neg); OCCULT BLOOD,URINE NEGATIVE (Neg); PH,URINE 5.5 (4.8-8.0); PROTEIN,URINE TRACE mg/dl (Neg); UROBILINOGEN,URINE 0.2 E.U/dL (0.2-1.0)
[2018-12-09 17:46] LABS: UA COLLECTION TYPE CLN CATCH MIDSTREAM
[2018-12-09 17:54] LABS: BACTERIA,URINE NONE SEEN /HPF (Neg); MUCUS STRANDS NONE SEEN /LPF (Neg); RBC,URINE NONE SEEN /HPF (0-2); SQUAMOUS EPITHELIAL CELL,UR MODERATE /LPF (FEW); WBC,URINE 0-4 /HPF (0-4)
[2018-12-09 19:39] VITALS: BP 121/65
[2018-12-09] MEDS: amLODIPine 5mg tablet PO SCH (20:30)
[2018-12-10] MEDS: ibuprofen tablet 400 MG TABLET PO PRN (03:15)
[2018-12-10] MEDS: acetaminophen 325mg tablet PO PRN ×2 (03:17→21:55)
--- NOTE | 2018-12-10 04:04 | NUR ---
Nursing Progress Note: Legal hold: Voluntary Client on voluntary DTS Report received from nurse with use of SBAR: PRIYANKA Ross Why are they here: Pt admitted from [facility] on 5150 for DTS. Pt has a plan to break a bottle to cut her wrists or overdose on pills. [facility] but is on a 30 day out. She reports feeling depressed, hopeless, and helpless. Pt unable to formulate a safety plan at this time. She reports prior suicide attempts. Assessment What has happened this shift: Patient in the group room at the beginning of shift. Patient expressed her dislike for Prozac and she explained she took it in the AM as she asked to happen due to increased restlessness when she takes it HS but reported that taking her Prozac during the day caused increased sedation and she slept all day. Patient compliant with HS medication and assessment. Patient expressed that she'd like to shower and groom herself in the AM, this underwriter mortgage loan offered to help her tonight with that but she wanted to wait until AM. Patient provided Motrin and Tylenol upon request for bilateral shoulder discomfort and warm compress provided as well. S/I, H/I: denies A/VH: denies Sleep: asleep at this time ADL's: Independent, uses FWW for ambulation Group attendance: no groups this shift Were meds taken: yes Any med S/E: Patient reports increased sedation during the day and increased restlessness during the night when taking Prozac. Mental Status Exam Appearance: disheveled, dressed in green scrubs, unshaved, greasy hair Eye contact: Good Behavior: Cooperative Speech: hyperverbal, continues to be accelerated and loud, interrupts others Mood: agitated Affect: congruent to mood Thought process: linear Thought Content: grooming in the AM, dislike for Prozac, bilateral shoulder discomfort Cognition: A&O Insight: Fair Judgment: Fair Interventions PRN's used: Motrin and Tylenol Therapeutic interventions: Ensured contract for safety, maintained a safe and supportive environment, encouraged independent performance of ADLs, monitored behavior and need for intervention, educated to pt. to let staff know if she continues to experience insomnia, and maintained Q 15 min safety checks. Restraints/seclusion/emergency medication: N/A Justification of Continued Inpatient Treatment: Pt. continues to require medication adjustments and a safe and supportive environment.
[2018-12-10 07:49] VITALS: BP 135/83
[2018-12-10] MEDS: docusate sod 100mg capsule PO SCH ×2 (07:50→20:24)
[2018-12-10] MEDS: FLUoxetine 20mg capsule PO SCH (07:52)
--- NOTE | 2018-12-10 09:31 | NUR ---
reassessment: Pt PO 100% meals meeting needs. LBM 12/09. No nutrition concerns at this time. Recommend: 1. continue regular diet 2. continue bowel care 3. Weight per rx Addendum: 12/10/18 at [address] Amended: Links added.
[2018-12-10] MEDS: albuterol 2.5 MG/3 ML nebule NEB PRN (10:31)
--- NOTE | 2018-12-10 14:48 | NUR ---
Nursing Progress Note: Ivania Legal hold: Voluntary Client on voluntary DTS Report received from PRIYANKA Cruz with use of SBAR: Why are they here: Pt admitted from [facility] on 5150 for DTS. Pt has a plan to break a bottle to cut her wrists or overdose on pills. [facility] but is [facility] a [facility] day out. She reports feeling depressed, hopeless, and helpless. Pt unable to formulate a safety plan at this time. She reports prior suicide attempts. Assessment What has happened this shift: Patient was just getting out of bed when approached by this clinical writer. She ambulated to the wright, appeared very stiff. She explained she just needed to warm up her joints. Offered her Motrin and Tylenol which she advised she had taken at around 3am. Patient is very calm cooperative and talkative. She refused Prozac which she states she informed the provider about and was noted in the providers notes. Will have a second interview tomorrow for [facility] for possible placement. S/I, H/I: denies A/VH: denies Sleep: 7.25 ADL's: Independent, uses FWW for ambulation Group attendance: no groups this shift Were meds taken: yes Any med S/E: Patient reports increased sedation during the day and increased restlessness during the night when taking Prozac. Mental Status Exam Appearance: disheveled, dressed in green scrubs, unshaved, greasy hair Eye contact: Good Behavior: Cooperative Speech: WNL Mood: cooperative Affect: congruent to mood Thought process: linear Thought Content: dislike for Prozac Cognition: A&O Insight: Fair Judgment: Fair Interventions PRN's used: Motrin and Tylenol Therapeutic interventions: Ensured contract for safety, maintained a safe and supportive environment, encouraged independent performance of ADLs, monitored behavior and need for intervention, educated to pt. to let staff know if she continues to experience insomnia, and maintained Q 15 min safety checks. Restraints/seclusion/emergency medication: N/A Justification of Continued Inpatient Treatment: Pt. continues to require medication adjustments and a safe and supportive environment.
[2018-12-10 19:31] VITALS: BP 130/61
[2018-12-10] MEDS: amLODIPine 5mg tablet PO SCH (20:24)
--- NOTE | 2018-12-11 03:28 | NUR ---
Nursing Progress Note: Legal hold: Voluntary Client on voluntary DTS Report received from nurse with use of SBAR: PRIYANKA Ross Why are they here: Pt admitted from [facility] on 5150 for DTS. Pt has a plan to break a bottle to cut her wrists or overdose on pills. [facility] but is [facility] a 30 day out. She reports feeling depressed, hopeless, and helpless. Pt unable to formulate a safety plan at this time. She reports prior suicide attempts. Assessment What has happened this shift: Patient sitting in the group room at the beginning of shift and went back to her room to read her book shortly after HS snack where she has remained since. Patient reports depression and refuses SI, HI, A/VH. patient states she understands why she is un the unit but did not want to have a conversation about it "no sense in rehashing the past." Patient continued to say, "I don't know what I'm going to do with my life, I already messed up a meeting with the ct from [facility]." Patient has a clear understanding she has another meeting with the [facility] and appears to be less resistive with the possibility of going there. Patient provided Motrin and Tylenol for shoulder pain/discomfort upon request. S/I, H/I: denies A/VH: denies Sleep: asleep at this time ADL's: Independent, uses FWW for ambulation Group attendance: no groups this shift Were meds taken: yes Any med S/E: Patient reports increased sedation during the day and increased restlessness during the night when taking Prozac. Mental Status Exam Appearance: disheveled, dressed in green scrubs Eye contact: Good Behavior: Cooperative Speech: hyperverbal, continues to be accelerated and loud, interrupts others Mood: depressed Affect: congruent to mood Thought process: linear Thought Content: meeting with the [facility] and discharge options Cognition: A&O Insight: Fair Judgment: Fair Interventions PRN's used: Motrin and Tylenol Therapeutic interventions: Ensured contract for safety, maintained a safe and supportive environment, encouraged independent performance of ADLs, monitored behavior and need for intervention, educated to pt. to let staff know if she continues to experience insomnia, and maintained Q 15 min safety checks. Restraints/seclusion/emergency medication: N/A Justification of Continued Inpatient Treatment: Pt. continues to require medication adjustments and a safe and supportive environment.
[2018-12-11] MEDS: ibuprofen tablet 400 MG TABLET PO PRN (07:31)
[2018-12-11] MEDS: acetaminophen 325mg tablet PO PRN (07:31)
[2018-12-11] MEDS: docusate sod 100mg capsule PO SCH ×2 (07:31→20:27)
[2018-12-11 08:00] VITALS: BP 129/69
[2018-12-11] MEDS: FLUoxetine 20mg capsule PO SCH (08:00)
--- NOTE | 2018-12-11 14:47 | NUR ---
Nursing Progress Note: Ivania Legal hold: Voluntary Client on voluntary DTS Report received from Brittani MATHEW with use of SBAR: Why are they here: Pt admitted from [facility] on 5150 for DTS. Pt has a plan to break a bottle to cut her wrists or overdose on pills. [facility] but is [facility] a [facility] day out. She reports feeling depressed, hopeless, and helpless. Pt unable to formulate a safety plan at this time. She reports prior suicide attempts. Assessment What has happened this shift: Patient was approached in the recreation room shortly after change of shift, she stated her pain was pretty bad, but it would get better as she moved. Discussed upcoming interview for possible placement at [facility]. She states her depression is unchanged since her arrival on the unit and she continues to have SI. When asked if she has a plan she replies "I know I need another plan, cutting myself wont work. I may need to take pills. Why wont they just put me in a room and let me do it." States she knows her health is failing "they keep telling me I am fine, but I know I am not, I only have one kidney and they tell me it is working fine. Its old, it cant be working very well." Stated she wanted to remain out of bed following breakfast and then admits "I am so tired all of the time". Took a 33.5 hour nap following breakfast. Refused prozac explaining that if she is prescribed it when she goes to [facility], she will have to take it or they will make her leave. Patient explains that she is concerned about the ongoing fatigue, she feels something is physically wrong rather than depression. Verbalizes frustration that "everyone just wants to give me a pill." S/I, H/I: Admits to SI with plan to make a new plan A/VH: denies Sleep: 5 ADL's: Independent, uses FWW for ambulation Group attendance: no Were meds taken: Refused Prozac Any med S/E: Patient reports increased sedation during the day and increased restlessness during the night when taking Prozac. Mental Status Exam Appearance: disheveled, dressed in dirty green scrubs Eye contact: Good Behavior: Cooperative Speech: calm, even tone Mood: depressed Affect: congruent to mood Thought process: linear Thought Content: meeting with the [facility] and discharge options Cognition: A&O Insight: Fair Judgment: Fair Interventions PRN's used: Motrin and Tylenol Therapeutic interventions: Ensured contract for safety, maintained a safe and supportive environment, encouraged independent performance of ADLs, monitored behavior and need for intervention, educated to pt. to let staff know if she continues to experience insomnia, and maintained Q 15 min safety checks. Restraints/seclusion/emergency medication: N/A Justification of Continued Inpatient Treatment: Pt. continues to require medication adjustments and a safe and supportive environment.
[2018-12-11 20:00] VITALS: BP 120/64
[2018-12-11] MEDS: amLODIPine 5mg tablet PO SCH (20:27)
--- NOTE | 2018-12-12 00:05 | NUR ---
Nursing Progress Note: Ivania Legal hold: Voluntary Client on voluntary DTS Report received from Brittani AKHTAR: Why are they here: Pt admitted from [facility] on 5150 for DTS. Pt has a plan to break a bottle to cut her wrists or overdose on pills. [facility] but is on a 30 day out. She reports feeling depressed, hopeless, and helpless. Pt unable to formulate a safety plan at this time. She reports prior suicide attempts. Assessment What has happened this shift: Pt was sitting in break room at change of shift. Pts assessment completed at bedside. Pt states she is suicidal but doesn't currently have a plan. She states "Im just tired of living, If I had some where to live that might be different, that would make me happy, but they don't want to get me a place to live because I smoke and that's the one thing in life that brings me happiness." Pt also complaining about taking a blood pressure medicine. Discussed smoking cessation w/patient and how giving up smoking might give her other things to be happy about and improve her blood pressure. Pt replied, "When you've been a smoker all your life and you lived to 73 then I'll listen." Encouraged pt to consider it. pt states today "was not a good day, but I'm glad its over, tomorrow is a new day." Acknowledged pts postive thinking for tomorrow. Pt reports appetite is good, sleeps good at night and chose to read a book prior to going to sleep. Pt spent some time pleasantly conversing with roommate before bed. S/I, H/I: S/I with no plan A/VH: denies Sleep: good ADL's: Independent, uses FWW for ambulation Group attendance: no Were meds taken: Yes, pt complains about taking bp medicine. Explained to pt why she takes this and she took med. Any med S/E: Pt reports feeling fatigued Mental Status Exam Appearance: disheveled, dressed in dirty green scrubs, encouraged shower but patient declined Eye contact: Good Behavior: Cooperative Speech: calm, even tone Mood: depressed Affect: congruent to mood Thought process: linear Thought Content: hopeful about finding a place but would like a place she can smoke at Cognition: A&O Insight: Fair Judgment: Fair Interventions PRN's used: none Therapeutic interventions: Ensured contract for safety, maintained a safe and supportive environment, encouraged independent performance of ADLs, monitored behavior and need for intervention, educated to pt. to let staff know if she continues to experience insomnia, and maintained Q 15 min safety checks. Restraints/seclusion/emergency medication: N/A Justification of Continued Inpatient Treatment: Pt. continues to require medication adjustments and a safe and supportive environment. Addendum: 12/12/18 at 0208 by Aliya James RN Pt woke at 0200 requesting prn ibuprofen and tylenol for shoulder pain
[2018-12-12] MEDS: acetaminophen 325mg tablet PO PRN ×2 (02:04→21:22)
[2018-12-12 08:00] VITALS: BP 113/63
[2018-12-12] MEDS: FLUoxetine 20mg capsule PO SCH (08:00)
[2018-12-12] MEDS: docusate sod 100mg capsule PO SCH ×2 (08:25→19:25)
--- NOTE | 2018-12-12 14:53 | NUR ---
Nursing Progress Note: Ivania Legal hold: Voluntary Client on voluntary DTS Report received from Brittani AKHTAR: Why are they here: Pt admitted from [facility] on 5150 for DTS. Pt has a plan to break a bottle to cut her wrists or overdose on pills. [facility] but is [facility] day out. She reports feeling depressed, hopeless, and helpless. Pt unable to formulate a safety plan at this time. She reports prior suicide attempts. Assessment What has happened this shift: Received report and received client in bed with eyes closed. Even, unlabored respirations noted with no apparent sign of distress or problems. Client woke for medication and assessment and was compliant with both. Client ate morning meal and returned to her room to rest. No behavioral issues as of this writing. Client attended am Group but fell asleep during meeting. She was rejected by [facility] for placement after discharge. Client has participated in group activities today. She remains irritable and intrusive on the unit. S/I, H/I: S/I with no plan A/VH: denies Sleep: good ADL's: Independent, uses FWW for ambulation Group attendance: yes Were meds taken: Yes, pt complains about taking bp medicine. Explained to pt why she takes this and she took med. Any med S/E: Pt reports feeling fatigued Mental Status Exam Appearance: disheveled, dressed in dirty green scrubs, encouraged shower but patient declined Eye contact: Good Behavior: Cooperative Speech: calm, even tone Mood: depressed Affect: congruent to mood Thought process: linear Thought Content: hopeful about finding a place but would like a place she can smoke at Cognition: A&O Insight: Fair Judgment: Fair Interventions PRN's used: none Therapeutic interventions: Ensured contract for safety, maintained a safe and supportive environment, encouraged independent performance of ADLs, monitored behavior and need for intervention, educated to pt. to let staff know if she continues to experience insomnia, and maintained Q 15 min safety checks. Restraints/seclusion/emergency medication: N/A
[2018-12-12] MEDS: magnesium hydroxide 30ml (MOM) UD suspension PO PRN (18:52)
[2018-12-12 20:04] VITALS: BP_SYST 131
--- NOTE | 2018-12-12 20:21 | NUR ---
Nursing Progress Note: Ivania Legal hold: Voluntary Client on voluntary DTS Report received from Vandana MATHEW: Why are they here: Pt admitted from [place] on 5150 for DTS. Pt has a plan to break a bottle to cut her wrists or overdose on pills. [facility] but is [facility] a 30 day out. She reports feeling depressed, hopeless, and helpless. Pt unable to formulate a safety plan at this time. She reports prior suicide attempts. Assessment What has happened this shift: Pt was laying in bed w/her book on her lap at change of shift. Pt was pleasant, denies s/i stating "I'm not a murderer, I just feel different about dying than most people, I'm 73 and I just don't want to live any more. Pt denies any plan to harm herself. Pt states "I guess they don't want me at the [facility] because I'm too mean. I don't know if the doctor caught this but it's my impression they just want a made to cook and clean for them and I can't sweep and mop floors." Explained to pt that the patients usually share responsibility of chores and perhaps they were just trying to determine what area she could possibly help out in. Pt nods her head as if she understands. pt states she will just need to find somewhere else to go. Pt is calm, cooperative. She requests her blood pressure medicine later in the evening and some milk of mag for constipation. pt was given prn for constipation and med compliant. Pt reports appetite is good and sleep is fair, she woke last night due to shoulder pain so she would like prn for pain at hs. S/I, H/I: denies plan stating she just doesnt want to live anymore A/VH: denies Sleep: good ADL's: Independent, uses FWW for ambulation Group attendance: no evening groups offered Were meds taken: Yes Any med S/E: Pt reports feeling fatigued Mental Status Exam Appearance: disheveled, changed scrubs, encouraged shower but patient declined Eye contact: Good Behavior: Cooperative Speech: normal rate and rhythm Mood: depressed Affect: congruent to mood Thought process: linear Thought Content: hopeful about finding housing Cognition: A&O Insight: Fair Judgment: Fair Interventions PRN's used: motrin, tylenol, mom Therapeutic interventions: Ensured contract for safety, maintained a safe and supportive environment, encouraged independent performance of ADLs, monitored behavior and need for intervention, educated to pt. to let staff know if she continues to experience insomnia, and maintained Q 15 min safety checks. Restraints/seclusion/emergency medication: N/A Justification of Continued Inpatient Treatment: Pt. continues to require medication adjustments and a safe and supportive environment. Addendum: 12/12/18 at 2141 by Aliya James RN Pt complains of numbness in her hands stating she had a soft tissue injury in her neck several years ago, she states numbness comes and goes and she would like someone to check and see if anything can be done to help her with numbness besides medication we are giving her. Pt was assisted w/repositioning in bed and given addtl blankets for comfort
[2018-12-12] MEDS: ibuprofen tablet 400 MG TABLET PO PRN (21:22)
[2018-12-12] MEDS: amLODIPine 5mg tablet PO SCH (21:22)
[2018-12-13] MEDS: FLUoxetine 20mg capsule PO SCH ×2 (07:24→07:30)
[2018-12-13] MEDS: ibuprofen tablet 400 MG TABLET PO PRN ×2 (07:24→20:52)
[2018-12-13] MEDS: acetaminophen 325mg tablet PO PRN ×2 (07:24→20:52)
[2018-12-13] MEDS: docusate sod 100mg capsule PO SCH ×2 (07:24→19:25)
[2018-12-13 07:59] VITALS: BP 121/79
--- NOTE | 2018-12-13 08:54 | NUR ---
1;1 SS spoke with [facility]. [facility] denied pt.
--- NOTE | 2018-12-13 16:22 | NUR ---
Nursing Progress Note: Legal hold: Voluntary Client on voluntary DTS Report received from Magalie MATHEW: Why are they here: Pt admitted from [facility] on 5150 for DTS. Pt has a plan to break a bottle to cut her wrists or overdose on pills. [facility] but is on a 30 day out. She reports feeling depressed, hopeless, and helpless. Pt unable to formulate a safety plan at this time. She reports prior suicide attempts. Assessment What has happened this shift: Patient is observed in her room at change of shift. She reports pain in her shoulders and neck, requesting tylenol and motrin. She states that she did not sleep well last night. At med pass she refuses prozac reporting that she took it the other night and it caused her to be awake and then when she took it the following day it caused her to sleep all day. She did not relate the daytime sleeping to lack of sleep the evening prior. She reports she has improved mood without the medication. Patient attends groups and her demeanor is relatively pleasant. S/I, H/I: denies A/VH: denies Sleep: 6.75hrs NOC ADL's: Independent, uses FWW for ambulation Group attendance: yes Were meds taken: refused prozac Any med S/E: none reported Mental Status Exam Appearance: hair brushed, malodorous, encouraged shower but patient declined Eye contact: direct Behavior: cranky but pleasant at times Speech: soft tone, normal rate and rhythm Mood: depressed Affect: flat Thought process: linear Thought Content: hopeful about finding housing Cognition: A&O Insight: Fair Judgment: Fair Interventions PRN's used: motrin, tylenol Therapeutic interventions: 1:1 therapeutic assessment, maintained safe therapeutic milieu, provided active listening with positive reinforcement, provided medication administration/education/monitoring as needed; Q15 safety checks. Restraints/seclusion/emergency medication: N/A Justification of Continued Inpatient Treatment: Continued therapeutic support and medication management needed to provide stabilization, prevent decompensation, improve coping mechanisms decreasing risk to patient and re-admittance.
--- NOTE | 2018-12-13 17:03 | NUR ---
Group Art Therapy (Continued): Patient was able to follow all directives, finding a meaningful picture and writing a word or sentence of affirmation. She was able to share with the group. She made a significant effort to find a positive picture/statement she could make. She selected a picture of a polar bear who was holding a sign that said "Grr..." She noted, "See I'm not the only one that feels this way sometimes".... for her Positive Affirmations she wrote: Hug Yourself, Love Yourself".... She then added "You have to love yourself first,...nobody else will." Patient also made an effort to listen to others who were sharing. She made few comments, however, presented as content demonstrating some ability to regulate her thoughts and feelings. Cheyanne Gerardo M.A. Licensed Marriage, Family Therapist #[id number] [facility] Art Therapist Addendum: 12/13/18 at 1709 by Cheyanne Gerardo SS Amended: Links added.
[2018-12-13 19:43] VITALS: BP 115/73
[2018-12-13] MEDS: amLODIPine 5mg tablet PO SCH (20:52)
--- NOTE | 2018-12-13 21:05 | NUR ---
Nursing Progress Note: Legal hold: Voluntary Client on voluntary DTS Report received from Anjel MATHEW: Why are they here: Pt admitted from [facility] on 5150 for DTS. Pt has a plan to break a bottle to cut her wrists or overdose on pills. [facility] but is on a 30 day out. She reports feeling depressed, hopeless, and helpless. Pt unable to formulate a safety plan at this time. She reports prior suicide attempts. Assessment What has happened this shift: Pt was sitting in the group room at change of shift. Pt states that her day was "as good as could be expected." pt endorses depression and states she wishes she had somewhere to go. Encouraged pt to shower and she states she will do it in the morning because she is tired. She states she would like to shave and trim her fingernails, told pt we can assist her tonight as we have more techs and pt declined. Pt was given clean scrubs to change. Pt continues to c/o about "nerve and joint pain" in her shoulders and neck. She requests tylenol and motrin before bed then routinely wakes up in the morning requesting a hot pack. Pts appetite is good and she sleeps well during the night S/I, H/I: denies A/VH: denies Sleep: 6.75hrs NOC ADL's: Independent, uses FWW for ambulation Group attendance: yes Were meds taken: yes Any med S/E: none reported Mental Status Exam Appearance: hair brushed, malodorous, encouraged shower but patient declined, clean scrubs provided Eye contact: direct Behavior: cranky but pleasant at times Speech: soft tone, normal rate and rhythm Mood: depressed Affect: flat Thought process: linear Thought Content: hopeful about finding housing Cognition: A&O Insight: Fair Judgment: Fair Interventions PRN's used: motrin, tylenol Therapeutic interventions: 1:1 therapeutic assessment, maintained safe therapeutic milieu, provided active listening with positive reinforcement, provided medication administration/education/monitoring as needed; Q15 safety checks. Restraints/seclusion/emergency medication: N/A Justification of Continued Inpatient Treatment: Continued therapeutic support and medication management needed to provide stabilization, prevent decompensation, improve coping mechanisms decreasing risk to patient and re-admittance.
[2018-12-14] MEDS: acetaminophen 325mg tablet PO PRN ×2 (07:15→21:53)
[2018-12-14] MEDS: ibuprofen tablet 400 MG TABLET PO PRN ×2 (07:15→21:38)
[2018-12-14] MEDS: docusate sod 100mg capsule PO SCH ×2 (07:15→20:58)
[2018-12-14 07:27] VITALS: BP 117/67
[2018-12-14] MEDS: FLUoxetine 20mg capsule PO SCH (08:00)
--- NOTE | 2018-12-14 14:37 | NUR ---
Nursing Progress Note: Legal hold: Voluntary for DTS Report received from Magalie MATHEW: Why are they here: Pt admitted from [facility] on 5150 for DTS. Pt has a plan to break a bottle to cut her wrists or overdose on pills. [facility] but is on a 30 day out. She reports feeling depressed, hopeless, and helpless. Pt unable to formulate a safety plan at this time. She reports prior suicide attempts. Assessment What has happened this shift: Patient is observed laying in her bed at change of shift. She sits up to converse with this RN. She states that she did not sleep well the night before and does not know why. She is mildly pleasant in conversation telling this RN that the name of her stuffed animal puppy is Aziza Cain and that Aziza Cain has been her best friend for the last year. Patient requests a laundry basket to put her dirty clothing in. She refuses prozac but takes DSS, Tylenol and motrin. Patient attends meals and socializes in the group room with others. S/I, H/I: denies A/VH: denies Sleep: 7.255hrs NOC and rested during the day ADL's: Independent, uses FWW for ambulation Group attendance: yes Were meds taken: yes Any med S/E: none reported Mental Status Exam Appearance: hair brushed, malodorous, encouraged shower but patient declined. Eye contact: direct Behavior: less cranky than in prior shifts, pleasant at times Speech: soft tone, normal rate and rhythm Mood: depressed Affect: flat Thought process: linear Thought Content: finding housing Cognition: A&O Insight: Fair Judgment: Fair Interventions PRN's used: motrin, tylenol Therapeutic interventions: 1:1 assessment, establishment of rapport, maintained safe therapeutic milieu, provided active listening with positive feedback, provided medication education and monitored for effects, monitored for change in behavior and provided needed interventions. Q 15 minute safety checks. Restraints/seclusion/emergency medication: N/A Justification of Continued Inpatient Treatment: Continued therapeutic support and medication management needed to provide stabilization, prevent decompensation, improve coping mechanisms decreasing risk to patient and re-admittance.
[2018-12-14 20:00] VITALS: BP 122/66
[2018-12-14] MEDS: amLODIPine 2.5mg tablet PO SCH (20:58)
[2018-12-14 21:11] VITALS: BP 118/80
--- NOTE | 2018-12-15 00:17 | NUR ---
Nursing Progress Note: Legal hold: Voluntary Client on voluntary DTS Report received from HERMILO Soliman with use of SBAR Why are they here: Pt admitted from [facility] on 5150 for DTS. Pt has a plan to break a bottle to cut her wrists or overdose on pills. [facility] but is on a 30 day out. She reports feeling depressed, hopeless, and helpless. Pt unable to formulate a safety plan at this time. She reports prior suicide attempts. Assessment What has happened this shift: Pt was sitting in group room by herself watching TV at shift change. Pt is cooperative and asks if the channel can be turned from news. Pt remains there through med pass and HS snack. Pt is compliant with medication and 1:1 assessment. Pt's Norvasc was decreased to 2.5mg HS. Pt states "I am depressed and have no where to go." "If I knew that at the age of 73 that I would be homeless and alone I am not sure what I would have done." "I can't go back to the mission." Pt retires to bed around 2100 and requests PRN Tylenol and Motrin for generalized pain. Pt was encouraged to shower "I will take one in the morning if they wake me up." Pt S/I, H/I: Pt denies. A/VH: Pt denies. None observed. Sleep: See sleep assessment notation. 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 Were meds taken: Medication compliant. Any med S/E: None reported or observed. Mental Status Exam Appearance: Hair brushed, malodorous, encouraged shower but patient declined, "I will shower in the morning." Eye contact: Direct Behavior: Cooperative, negative Speech: Soft tone, normal rate and rhythm Mood: Depressed Affect: Blunted Thought process: Linear Thought Content: "I have no where to go" Cognition: A&O Insight: Fair Judgment: Fair Interventions PRN's used: Motrin, Tylenol Therapeutic interventions: 1:1 therapeutic assessment, maintained safe therapeutic milieu, provided active listening with positive reinforcement, provided medication administration/education/monitoring as needed; Q15 safety checks. Restraints/seclusion/emergency medication: N/A Justification of Continued Inpatient Treatment: Continued therapeutic support and medication management needed to provide stabilization, prevent decompensation, improve coping mechanisms decreasing risk to patient and re-admittance.
[2018-12-15 07:26] VITALS: BP 121/68
[2018-12-15] MEDS: FLUoxetine 20mg capsule PO SCH (07:27)
[2018-12-15] MEDS: docusate sod 100mg capsule PO SCH ×2 (07:27→21:26)
[2018-12-15] MEDS: acetaminophen 325mg tablet PO PRN ×2 (08:00→21:26)
[2018-12-15] MEDS: ibuprofen tablet 400 MG TABLET PO PRN ×2 (08:10→21:26)
--- NOTE | 2018-12-15 14:47 | NUR ---
Nursing Progress Note:Ivania Legal hold: Voluntary Client on voluntary DTS Report received from CRN Why are they here: Pt admitted from [facility] on 5150 for DTS. Pt has a plan to break a bottle to cut her wrists or overdose on pills. [facility] but is on a 30 day out. She reports feeling depressed, hopeless, and helpless. Pt unable to formulate a safety plan at this time. She reports prior suicide attempts. Assessment What has happened this shift: Client was in bed to start this shift. Woke for medications and assessment. She c/o pain in left arm rated at 7 on a 10 scale. Client was given 975 mg of Tylenol and not the 650 indicated for fever. She also took PRN of Motrin at the same time all with good effect. Client visible in Group Room for breakfast and she was social with peers while at breakfast. She was unsuccessful in her placement interview and client is, "stressed out because nobody wants me". Client attended Group activities today and was not as loud and intrusive. Client feels that her Doctor does not like her and she further feels that Doctor is blocking her discharge. Patient education was given as it pertains to medication compliance. She dismissed the information given as, "bullshit". S/I, H/I: Pt denies. A/VH: Pt denies. None observed. Sleep: See sleep assessment notation. ADL's: Independent, uses FWW for ambulation Group attendance: yes Were meds taken: Refuses Prozac Any med S/E: None reported or observed. Mental Status Exam Appearance: disheveled Eye contact: Direct Behavior: Cooperative, negative Speech: Soft tone, normal rate and rhythm Mood: Depressed Affect: Blunted Thought process: Linear Thought Content: "I have no where to go" Cognition: A&O Insight: Fair Judgment: Fair Interventions PRN's used: Motrin, Tylenol Therapeutic interventions: 1:1 therapeutic assessment, maintained safe therapeutic milieu, provided active listening with positive reinforcement, provided medication administration/education/monitoring as needed; Q15 safety checks. Restraints/seclusion/emergency medication: N/A Justification of Continued Inpatient Treatment: Continued therapeutic support and medication management needed to provide stabilization, prevent decompensation, improve coping mechanisms decreasing risk to patient and re-admittance.
--- NOTE | 2018-12-15 15:32 | NUR ---
During Group this afternoon, client wrote that she is so tired of this life and further requested that she be helped to . This is concerning because earlier in shift, client readily contracted for safe unit behaviors.
[2018-12-15 20:00] VITALS: BP 117/62
[2018-12-15 21:20] VITALS: BP 120/78
[2018-12-15] MEDS: amLODIPine 2.5mg tablet PO SCH (21:26)
--- NOTE | 2018-12-15 23:35 | NUR ---
Nursing Progress Note: Legal hold: Voluntary Client on voluntary for DTS Report received from HERMILO oSliman with use of SBAR Why are they here: Pt admitted from [facility] on 5150 for DTS. Pt has a plan to break a bottle to cut her wrists or overdose on pills. [facility] but is on a 30 day out. She reports feeling depressed, hopeless, and helpless. Pt unable to formulate a safety plan at this time. She reports prior suicide attempts. Assessment What has happened this shift: Patient sitting in her normal spot in the group room at shift change. Pt sits by herself watching T.V. Pt is malodorous and is asked if she would like to shower. Pt refuses "I will shower in the morning." When asked how her day was pt perseverates on how people are against her. DONALD Spence "just wants to kick me out." Pt also refers to the person who interviewed her from [facility]; "he just doesn't like me and he walked away saying I was mean." Pt also perseverates on being homeless and how the homeless are treated and past life events, especially about losing her children to hospice social worker. Pt endorses depression and passive SI with no plan. "I have been depressed for 30 years." "I don't know why people don't understand why I want to , I have nothing and I am all alone." Noted L>R LE edema 3+, no complaints of pain in that left leg. PRN Motrin and Tylenol admin with HS meds. Medication compliant and cooperative throughout shift and with 1:1 assessment. S/I, H/I: Passive - no plan. Denies H/I A/VH: Pt denies. None observed. Sleep: See sleep assessment notation. 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 Were meds taken: Medication compliant. Any med S/E: None reported or observed. Mental Status Exam Appearance: Dressed in green unit scrubs, malodorous, encouraged shower but patient declined, "I will shower in the morning." Eye contact: Direct Behavior: Cooperative, negative, hopeless Speech: Soft tone, normal rate and rhythm Mood: Depressed, hopeless Affect: Constricted Thought process: Linear Thought Content: "I have no one". Perseverating on past events. Cognition: A&O Insight: Poor Judgment: Poor Interventions PRN's used: Motrin, Tylenol Therapeutic interventions: 1:1 therapeutic assessment, maintained safe therapeutic milieu, provided active listening with positive reinforcement, provided medication administration/education/monitoring as needed; Q15 safety checks. Restraints/seclusion/emergency medication: N/A Justification of Continued Inpatient Treatment: Continued therapeutic support and medication management needed to provide stabilization, prevent decompensation, improve coping mechanisms decreasing risk to patient and re-admittance.
[2018-12-16] MEDS: docusate sod 100mg capsule PO SCH ×2 (07:44→20:00)
[2018-12-16] MEDS: FLUoxetine 20mg capsule PO SCH (07:47)
[2018-12-16 08:00] VITALS: BP 101/65
[2018-12-16] MEDS: ibuprofen tablet 400 MG TABLET PO PRN ×2 (08:20→21:36)
[2018-12-16] MEDS: acetaminophen 325mg tablet PO PRN ×2 (11:37→21:53)
--- NOTE | 2018-12-16 14:40 | NUR ---
Nursing Progress Note: Legal hold: N/A Client is voluntary Report received from Elise AKHTAR with use of SBAR Why are they here: Pt admitted from [facility] on 5150 for DTS. Pt has a plan to break a bottle to cut her wrists or overdose on pills. [facility] day out. She reports feeling depressed, hopeless, and helpless. Pt unable to formulate a safety plan at this time. She reports prior suicide attempts. Assessment What has happened this shift: Pt refused her Prozac this morning, stated that it made her restless when she took it at bedtime and sleepy when she took it in the morning. Medication education provided that it is common to experience some initial drowsiness with antidepressants for at least the first couple of weeks and then will usually subside. Pt states she doesn't want to talk to Grzegorz as he's not a real doctor, wants to speak with Dr Agudelo as he is the only one here who knows what he is doing. Pt also stated that she is not going to take Zoloft, seemed to think it was Grzegorz's idea and not Dr Agudelo's. Asked pt if there were any antidepressant that she would consider taking. Pt replied that she would take Ativan. Reminded pt that this was not an antidepressant. Pt continues to be depressed with passive SI she states that she does not want to hurt herself but she just wants to . "I'm 73 years old, I'm crippled, I'm homeless, no family, nobody wants me, no pill is going to fix that. I want to , I have that right." Pt requested prn ibuprofen 400 mg after breakfast at 0820 for 5/10 bilateral shoulder pain, she states that the right shoulder usually hurts more than the left. Pt also wished to take prn Tylenol 925 mg at the same time as the ibuprofen 400 mg. Encouraged pt to stagger the meds for better effect, encouraged her to try waiting at least 1/2 hour. Pt did not request prn Tylenol again until 1130 then complained that she had gotten it 2 hours late. Medication education provided that it is an as needed medication and that nurses usually do not administer 2 different prn pain medications at the same time per pharmacy guidelines. S/I, H/I: Passive SI, denies HI A/VH: Pt denies Sleep: Slept 6 hours per noc shift report ADL's: Independent, uses FWW for ambulation Group attendance: no group this morning Were meds taken: Pt refused Prozac, only took stool softener, Tylenol and ibuprofen Any med S/E: None noted or reported Mental Status Exam Appearance: Disheveled, food stains on scrubs Eye contact: Good Behavior: irritable, resistive to care Speech: Soft tone, normal rate and rhythm Mood: Depressed, hopeless, irritable Affect: Depressed, irritable Thought process: Linear Thought Content: Hopeless, helpless, wants to Cognition: A/O X 4. Insight: Poor Judgment: Poor Interventions PRN's used: ibuprofen 400 mg, Tylenol 975 mg Therapeutic interventions: 1:1 assessment, active listening, medication administration/education/monitoring, encouragement to perform personal hygiene, Q15 safety checks. Restraints/seclusion/emergency medication: N/A Justification of Continued Inpatient Treatment: Continued therapeutic support and medication management needed to provide stabilization, prevent decompensation, improve coping mechanisms decreasing risk to patient and re-admittance.
[2018-12-16 19:00] VITALS: BP 124/48
[2018-12-16 21:25] VITALS: BP 118/76
[2018-12-16] MEDS: amLODIPine 2.5mg tablet PO SCH (21:36)
--- NOTE | 2018-12-17 01:12 | NUR ---
Nursing Progress Note: Legal hold: Voluntary Client on voluntary for DTS Report received from HERMILO Soliman with use of SBAR Why are they here: Pt admitted from [facility] on 5150 for DTS. Pt has a plan to break a bottle to cut her wrists or overdose on pills. [facility] but is [facility] a 30 day out. She reports feeling depressed, hopeless, and helpless. Pt unable to formulate a safety plan at this time. She reports prior suicide attempts. Assessment What has happened this shift: Pt sitting in group room watching T.V and doing a word search puzzle. Pt irritable, but cooperative. Pt remains in group room throughout the evening then retires to her room around 2130. Pt's 1:1 is completed at bedside. Pt perseverates on how "everyone is in control of her medications and they are administering them to her all wrong." Pt perseverates that "Grzegorz isn't a real doctor and no around here knows what they are dong." Pt when asked to find something positive about her life "I have nothing positive, I am old and alone. I just want to ." Pt talks about not wanting to live, but has no plan. Pt was compliant with 1:1 assessment and took all meds except for her stool softener. S/I, H/I: Passive - no plan. Denies H/I A/VH: Pt denies. None observed. Sleep: See sleep assessment notation. 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 Were meds taken: Took all meds except for her stool softener Any med S/E: None reported or observed. Mental Status Exam Appearance: Dressed in green unit scrubs, malodorous, encouraged shower but patient declined, "I will shower in the morning." Eye contact: Direct Behavior: Cooperative, irritable, hopeless Speech: Soft tone, normal rate and rhythm Mood: Depressed, hopeless Affect: Constricted Thought process: Linear Thought Content: "I have no one". Perseverating on past events. Cognition: A&O Insight: Poor Judgment: Poor Interventions PRN's used: Motrin, Tylenol Therapeutic interventions: 1:1 therapeutic assessment, maintained safe therapeutic milieu, provided active listening with positive reinforcement, provided medication administration/education/monitoring as needed; Q15 safety checks. Restraints/seclusion/emergency medication: N/A Justification of Continued Inpatient Treatment: Continued therapeutic support and medication management needed to provide stabilization, prevent decompensation, improve coping mechanisms decreasing risk to patient and re-admittance.
[2018-12-17] MEDS: docusate sod 100mg capsule PO SCH ×2 (07:40→19:09)
[2018-12-17] MEDS: ibuprofen tablet 400 MG TABLET PO PRN ×2 (07:40→21:16)
[2018-12-17] MEDS: acetaminophen 325mg tablet PO PRN ×2 (07:42→21:17)
[2018-12-17 08:00] VITALS: BP 123/64
[2018-12-17] MEDS: FLUoxetine 20mg capsule PO SCH (08:00)
[2018-12-17 08:20] VITALS: BP 123/64
--- NOTE | 2018-12-17 09:59 | NUR ---
reassessment: Pt PO 100% meals meeting needs. LBM 12/16. No nutrition concerns at this time. Recommend: 1. continue regular diet 2. continue bowel care 3. Weight per rx Addendum: 12/17/18 at [address] Amended: Links added.
--- NOTE | 2018-12-17 14:09 | NUR ---
Nursing Progress Note: Legal hold: N/A Client is voluntary Report received from Elise AKHTAR with use of SBAR Why are they here: Pt admitted from [facility] on 5150 for DTS. Pt has a plan to break a bottle to cut her wrists or overdose on pills. [facility] but is [facility] a [facility] day out. She reports feeling depressed, hopeless, and helpless. Pt unable to formulate a safety plan at this time. She reports prior suicide attempts. Assessment What has happened this shift: Pt refused her Prozac again this morning stating that she is waiting to speak with Dr Agudelo. Pt continues to be depressed with passive SI. Pt c/o pain before breakfast. Asked pt if it was her shoulders hurting again. She replied, "yeah and my legs, my heart, my soul, my brain." Pt wished to take prn Tylenol 975 mg and ibuprofen 400 mg at the same time, she is not concerned about any potential termite helper adverse side effects, gave both meds at 0740. S/I, H/I: Passive SI, denies HI A/VH: Pt denies Sleep: Slept well per noc shift report ADL's: Independent, uses FWW for ambulation Group attendance: no group this morning Were meds taken: Pt refused Prozac, only took stool softener, Tylenol and ibuprofen Any med S/E: None noted or reported Mental Status Exam Appearance: Hair pulled back in a head band, wearing hospital scrubs Eye contact: Good Behavior: irritable Speech: Soft tone, normal rate and rhythm Mood: Depressed, hopeless, irritable Affect: Depressed, irritable Thought process: Linear Thought Content: Everything hurts including her heart and soul Cognition: A/O X 4. Insight: Poor Judgment: Poor Interventions PRN's used: ibuprofen 400 mg, Tylenol 975 mg Therapeutic interventions: 1:1 assessment, active listening, medication administration/education/monitoring, encouragement to perform personal hygiene, Q15 safety checks. Restraints/seclusion/emergency medication: N/A Justification of Continued Inpatient Treatment: Continued therapeutic support and medication management needed to provide stabilization, prevent decompensation, improve coping mechanisms decreasing risk to patient and re-admittance.
[2018-12-17 19:57] VITALS: BP 119/69
[2018-12-17] MEDS: amLODIPine 2.5mg tablet PO SCH (21:16)
--- NOTE | 2018-12-17 22:05 | NUR ---
Nursing Progress Note: Legal hold: N/A Client is voluntary Report received from Jourdan AKHTAR with use of SBAR Why are they here: Pt admitted from [facility] on 5150 for DTS. Pt has a plan to break a bottle to cut her wrists or overdose on pills. [facility] but is on a 30 day out. She reports feeling depressed, hopeless, and helpless. Pt unable to formulate a safety plan at this time. She reports prior suicide attempts. Assessment What has happened this shift: Pt continues to be depressed with passive SI. Pt c/o pain before snack. Asked pt if it was her shoulders hurting again. She replied, "yeah and my legs, my heart, my soul, my brain. Pt was coopertive with meds and was sitting in group room watching Tv with peers. S/I, H/I: Passive SI, denies HI A/VH: Pt denies Sleep: Slept well per noc shift report ADL's: Independent, uses FWW for ambulation Group attendance: no group this morning Were meds taken: Pt refused Prozac, only took stool softener, Tylenol and ibuprofen Any med S/E: None noted or reported Mental Status Exam Appearance: Hair pulled back in a head band, wearing hospital scrubs Eye contact: Good Behavior: irritable Speech: Soft tone, normal rate and rhythm Mood: Depressed, hopeless, irritable Affect: Depressed, irritable Thought process: Linear Thought Content: Everything hurts including her heart and soul Cognition: A/O X 4. Insight: Poor Judgment: Poor Interventions PRN's used: ibuprofen 400 mg, Tylenol 975 mg Therapeutic interventions: 1:1 assessment, active listening, medication administration/education/monitoring, encouragement to perform personal hygiene, Q15 safety checks. Restraints/seclusion/emergency medication: N/A Justification of Continued Inpatient Treatment: Continued therapeutic support and medication management needed to provide stabilization, prevent decompensation, improve coping mechanisms decreasing risk to patient and re-admittance.
[2018-12-18 07:22] VITALS: BP 112/69
[2018-12-18] MEDS: FLUoxetine 20mg capsule PO SCH (08:00)
[2018-12-18] MEDS: ibuprofen tablet 400 MG TABLET PO PRN ×2 (08:10→20:35)
[2018-12-18] MEDS: docusate sod 100mg capsule PO SCH ×2 (08:10→20:35)
[2018-12-18] MEDS: acetaminophen 325mg tablet PO PRN ×2 (08:11→20:37)
--- NOTE | 2018-12-18 18:09 | NUR ---
Nursing Progress Note: Legal hold: N/A Client is voluntary Report received from Sav QUEZADA with use of SBAR Why are they here: Pt admitted from [facility] on 5150 for DTS. Pt has a plan to break a bottle to cut her wrists or overdose on pills. [facility] but is on a 30 day out. She reports feeling depressed, hopeless, and helpless. Pt unable to formulate a safety plan at this time. She reports prior suicide attempts. Assessment What has happened this shift: Pt refused Prozac, still waiting to speak with Dr Agudelo. When asked how if she was having SI today, she replied, "That's like asking a beater if he's still beating his , if he says no, he still used to be a beater." Pt continued, "Is it active? No it's not active." Asked pt if she could think of anything that still makes her happy or brings her fady. Pt replied that "I just want to go home and see my lord." Asked pt if she had any unresolved issues or any amends she would like to make. Pt replied that she had made amends to the people she needed to make amends to and she's still waiting for some of them to make amends to her. Pt states that "I haven't seen anything in this world yet that makes me want to go on." Pt has an appt with social security on 12/22/18. Plan is for her trimming caser to take her from her to the appointment. PA pushing for pt then going to a hotel with a food card. Pt able to return to the [facility] on 12/27/18. S/I, H/I: Passive SI, denies HI A/VH: Pt denies Sleep: Slept well per noc shift report ADL's: Independent, uses FWW for ambulation,uses pull up incontinent briefs Group attendance: Yes Were meds taken: Pt refused Prozac Any med S/E: None noted or reported Mental Status Exam Appearance: Hair pulled back in a head band, wearing hospital scrubs with old food stains on top Eye contact: Good Behavior: Cooperative Speech: Soft tone, normal rate and rhythm Mood: Depressed, hopeless Affect: Depressed Thought process: Linear Thought Content: "they're gettin' ready to kick me out of her soon and I still don't know where I'm going." Cognition: A/O X 4. Insight: Fair Judgment: Fair Interventions PRN's used: ibuprofen 400 mg, Tylenol 975 mg Therapeutic interventions: 1:1 assessment, active listening, therapeutic conversation, medication administration/education/monitoring, encouragement to perform personal hygiene, positive reinforcement, Q15 safety checks. Restraints/seclusion/emergency medication: N/A Justification of Continued Inpatient Treatment: Continued therapeutic support and medication management needed to provide stabilization, prevent decompensation, improve coping mechanisms decreasing risk to patient and re-admittance. Pt can return to [facility] on 12/27/18.
[2018-12-18 20:05] VITALS: BP 115/66
[2018-12-18] MEDS: amLODIPine 2.5mg tablet PO SCH (20:35)
--- NOTE | 2018-12-18 21:54 | NUR ---
Nursing Progress Note: Legal hold: N/A Client is voluntary Report received from Jourdan AKHTAR with use of SBAR Why are they here: Pt admitted from [facility] on 5150 for DTS. Pt has a plan to break a bottle to cut her wrists or overdose on pills. [facility] but is on a 30 day out. She reports feeling depressed, hopeless, and helpless. Pt unable to formulate a safety plan at this time. She reports prior suicide attempts. Assessment What has happened this shift: When asked how if she was having SI today, she replied, "That's like asking a beater if he's still beating his , if he says no, he still used to be a beater." Pt continued, "Is it active? No it's not active." Asked pt if she could think of anything that still makes her happy or brings her fady. Pt replied that "I just want to go home and see my lord." Asked pt if she had any unresolved issues or any amends she would like to make. Pt replied that she had made amends to the people she needed to make amends to and she's still waiting for some of them to make amends to her. Pt states that "I haven't seen anything in this world yet that makes me want to go on." Pt was in day room watching tv and after the game was over asked if the channel could be changed. She became up set after pelon was not changed due to other peers watching the post game show. Pt has an appt with social security on 12/22/18. Plan is for her employment evaluator/case manager to take her from her to the appointment. PA pushing for pt then going to a hotel with a food card. Pt able to return to the [facility] on 12/27/18. S/I, H/I: Passive SI, denies HI A/VH: Pt denies Sleep: Slept well per noc shift report ADL's: Independent, uses FWW for ambulation,uses pull up incontinent briefs Group attendance: Yes Were meds taken: Pt refused Prozac Any med S/E: None noted or reported Mental Status Exam Appearance: Hair pulled back in a head band, wearing hospital scrubs with old food stains on top Eye contact: Good Behavior: Cooperative Speech: Soft tone, normal rate and rhythm Mood: Depressed, hopeless Affect: Depressed Thought process: Linear Thought Content: "they're gettin' ready to kick me out of her soon and I still don't know where I'm going." Cognition: A/O X 4. Insight: Fair Judgment: Fair Interventions PRN's used: ibuprofen 400 mg, Tylenol 975 mg Therapeutic interventions: 1:1 assessment, active listening, therapeutic conversation, medication administration/education/monitoring, encouragement to perform personal hygiene, positive reinforcement, Q15 safety checks. Restraints/seclusion/emergency medication: N/A Justification of Continued Inpatient Treatment: Continued therapeutic support and medication management needed to provide stabilization, prevent decompensation, improve coping mechanisms decreasing risk to patient and re-admittance. Pt can return to [facility] on 12/27/18.
[2018-12-19 08:00] VITALS: BP 128/74
[2018-12-19] MEDS: FLUoxetine 20mg capsule PO SCH (08:00)
[2018-12-19] MEDS: docusate sod 100mg capsule PO SCH ×2 (08:16→21:27)
[2018-12-19] MEDS: ibuprofen tablet 400 MG TABLET PO PRN ×2 (08:16→21:28)
[2018-12-19] MEDS: acetaminophen 325mg tablet PO PRN ×2 (08:17→21:27)
--- NOTE | 2018-12-19 14:19 | NUR ---
Nursing Progress Note: Legal hold: N/A Client is voluntary Report received from Magalie QUEZADA with use of SBAR Why are they here: Pt admitted from [facility] on 5150 for DTS. Pt has a plan to break a bottle to cut her wrists or overdose on pills. Pt [facility] mission but is on a 30 day out. She reports feeling depressed, hopeless, and helpless. Pt unable to formulate a safety plan at this time. She reports prior suicide attempts. Assessment What has happened this shift: Pt continues to refuse Prozac, medicated with prn Tylenol 975 mg and ibuprofen 400 mg at 0817 for 10/04 general pain with good effect. When asked how pt was doing today, she replied, "I'm still here." Pt quieter today, spent more time in her room, sleeping more, more isolative to self. Harjeet from the [facility] will be here today around 1600 to interview pt again today. Social workers plan to speak with pt prior to interview to encourage her to be cooperative and polite in the hopes that pt will be able to be discharged there vs the [place]. S/I, H/I: Passive SI, denies HI A/VH: Pt denies Sleep: Slept 6.75 hours per noc shift report ADL's: Independent, uses FWW for ambulation,uses pull up incontinent briefs Group attendance: Yes Were meds taken: Pt refused Prozac Any med S/E: None noted or reported Mental Status Exam Appearance: Hair pulled back in a head band, wearing hospital scrubs Eye contact: Good Behavior: Cooperative, quiet, isolative to self Speech: Soft tone, normal rate and rhythm Mood: Depressed Affect: Depressed Thought process: Linear Thought Content: focused on pending discharge Cognition: A/O X 4. Insight: Fair Judgment: Fair Interventions PRN's used: ibuprofen 400 mg, Tylenol 975 mg Therapeutic interventions: 1:1 assessment, active listening, therapeutic conversation, medication administration/education/monitoring, encouragement to perform personal hygiene, positive reinforcement, Q15 safety checks. Restraints/seclusion/emergency medication: N/A Justification of Continued Inpatient Treatment: Pt is 73 years old and homeless, she has lost her SSI and is in the process of re-applying for it, she cannot return to the [place] until 12/27/18, the [place] may not be the best choice for a woman of her age, hope is that pt will resume SSI and be accepted at [facility] decreasing risk to patient and likely solomon of re-admittance. Addendum: 12/19/18 at 1639 by Maru Sanchez RN ([place]) Interview with Harjeet quintanilla, pt has been accepted at [facility], plan to discharge tomorrow morning.
[2018-12-19 20:00] VITALS: BP 131/71
[2018-12-19] MEDS: amLODIPine 2.5mg tablet PO SCH (21:28)
--- NOTE | 2018-12-19 22:07 | NUR ---
Nursing Progress Note: Legal hold: N/A Client is voluntary Report received from Jourdan AKHTAR with use of SBAR Why are they here: Pt admitted from [facility] on 5150 for DTS. Pt has a plan to break a bottle to cut her wrists or overdose on pills. Pt [facility] but is on a 30 day out. She reports feeling depressed, hopeless, and helpless. Pt unable to formulate a safety plan at this time. She reports prior suicide attempts. Assessment What has happened this shift: Pt medicated with prn Tylenol 975 mg and ibuprofen 400 mg at 2130 for 10/04 general pain with good effect. When asked how pt was doing today, she replied, "I'm still here." Pt quieter today, spent more time in group room social with peers while watching tv. S/I, H/I: Passive SI, denies HI A/VH: Pt denies Sleep: Slept 6.75 hours per noc shift report ADL's: Independent, uses FWW for ambulation,uses pull up incontinent briefs Group attendance: Yes Were meds taken: Pt refused Prozac Any med S/E: None noted or reported Mental Status Exam Appearance: Hair pulled back in a head band, wearing hospital scrubs Eye contact: Good Behavior: Cooperative, quiet, isolative to self Speech: Soft tone, normal rate and rhythm Mood: Depressed Affect: Depressed Thought process: Linear Thought Content: focused on pending discharge Cognition: A/O X 4. Insight: Fair Judgment: Fair Interventions PRN's used: ibuprofen 400 mg, Tylenol 975 mg Therapeutic interventions: 1:1 assessment, active listening, therapeutic conversation, medication administration/education/monitoring, encouragement to perform personal hygiene, positive reinforcement, Q15 safety checks. Restraints/seclusion/emergency medication: N/A Justification of Continued Inpatient Treatment: Pt is 73 years old and homeless, she has lost her SSI and is in the process of re-applying for it, she cannot return to the [place] until 12/27/18, the [place] may not be the best choice for a woman of her age, hope is that pt will resume SSI and be accepted at [facility] decreasing risk to patient and likely solomon of re-admittance. Addendum: 12/19/18 at 1639 by Maru Sanchez RN ([place]) Interview with Harjeet villatoro well, pt has been accepted at [facility], plan to discharge tomorrow morning.
[2018-12-20] MEDS: ibuprofen tablet 400 MG TABLET PO PRN ×2 (05:22→13:25)
[2018-12-20] MEDS: acetaminophen 325mg tablet PO PRN ×2 (05:24→13:26)
[2018-12-20 08:00] VITALS: BP 133/66
[2018-12-20] MEDS: docusate sod 100mg capsule PO SCH (08:00)
[2018-12-20] MEDS: FLUoxetine 20mg capsule PO SCH (08:00)
[2018-12-20] MEDS ORDERED: ACET-1008 PO (12:01)
[2018-12-20] MEDS ORDERED: AMLO2.5T5 PO (12:01)
[2018-12-20] MEDS ORDERED: FLUO20CA22 PO (12:01)
[2018-12-20] MEDS ORDERED: COL100C PO (12:01)
[2018-12-20] MEDS ORDERED: IBUP-1984 PO (12:01)
[2018-12-20] MEDS ORDERED: NICO-668 MM (12:01)
[2018-12-20] MEDS ORDERED: ALBU8HFA PO (12:01)
--- NOTE | 2018-12-20 14:37 | NUR ---
DISCHARGE NOTE: JAE Kirby accompanied by PCT Giovanna AKHTAR off the unit at 1430 going to [facility] via [facility]. She has all of her valuables with her as well as her walker. Her f/u appointment is tomorrow at [facility] at 8AM. She also has a follow up appointment on Tuesday with Social Security advocate. She has a disgruntled mood, pessimistic about the [facility] and angry abuot being homeless. She denies any SI. She has shown improvement in her mood since admission. She shows no acute physical or emotional distress. Nicotine replacement was offered but denied.
== END 2018-12-20 14:28 | disposition short-term general hospital (02) | DRG 885 ==
LOC: ADULT MH 09:26
PROVIDERS: ADMIT Psychiatry & Neurology Psychiatry; ATTEND Psychiatry & Neurology Psychiatry
DX: F33.2 Major depressive disorder, recurrent severe without psychotic features (principal); R45.851 Suicidal ideations; I10 Essential (primary) hypertension; F17.210 Nicotine dependence, cigarettes, uncomplicated; M19.90 Unspecified osteoarthritis, unspecified site; F10.10 Alcohol abuse, uncomplicated; Z88.8 Allergy status to other drugs, medicaments and biological substances; Z90.5 Acquired absence of kidney
CPT/HCPCS: 36415; 80048; 80061; 81001; 83036; 83735; 85025; 87081; 94640; 94760; 99285; Z7610